=== PATIENT | female | born 1930 | race Caucasian/White ===

== ENCOUNTER → 2016-08-10 | Outpatient (CLI) | payer MEDICARE, OTHER, MEDICAID ==
[~2016-08-10] MED LIST: ALBU8.5H3 INH; ATEN-39 PO; BISA10SU8 RECTALLY; BUPR300T20 PO; CALC-1072 PO; CETI10TA56 PO; CHOL100055 PO; CITA-50 PO; CYAN100085 PO; DEXT1DRO7 BOTH EYES; FLUT16SP12 EA NOSTRIL; FOLI-40 PO; FURO40TA70 PO; GABA-222 PO; GUAI100G PO; HYDR-4246 PO; LISI40TA4 PO; MAG355OR18 PO; MAGN400O4 PO; MENT71OI TOP; METH57CR TOP; MYLANTA PO; NYST8800 TOP; POLY12PO2 PO; PRIM50TA27 PO; SENN-9 PO; WARF5TAB6 PO; [UNRECOGNIZED DRUG - CODE]
== END ==
LOC: LABN.A1212 22:14
PROVIDERS: ATTEND Family Medicine
DX: Z53.8 Procedure and treatment not carried out for other reasons (principal)

== ENCOUNTER → 2016-08-11 | Outpatient (CLI) | payer MEDICARE, OTHER, MEDICAID ==
[2016-08-11 07:39] LABS: INR 1.45 (0.76-1.04); PROTHROMBIN TIME 15.8 SEC (9.31-12.49)
== END ==
LOC: LABNH.A212 00:17
PROVIDERS: ATTEND Family Medicine
DX: Z79.01 Long term (current) use of anticoagulants (principal)
CPT/HCPCS: 36415; 85610; P9604

== ENCOUNTER → 2016-09-08 | Outpatient (CLI) | payer MEDICARE, OTHER, MEDICAID ==
[2016-09-08 09:33] LABS: INR 1.53 (0.76-1.04); PROTHROMBIN TIME 16.7 SEC (9.31-12.49)
== END ==
LOC: LABNH.A212 01:02
PROVIDERS: ATTEND Family Medicine
DX: Z79.01 Long term (current) use of anticoagulants (principal)
CPT/HCPCS: 36415; 85610; P9604

== ENCOUNTER → 2016-09-22 | Outpatient (CLI) | payer MEDICARE, OTHER, MEDICAID ==
[2016-09-22 09:59] LABS: INR 1.5 (0.90-1.23); PROTHROMBIN TIME 17.9 SEC (10.8-13.8)
[2016-09-22 10:11] LABS: ANION GAP 10 MEQ/L (5-15); BUN/CREATININE RATIO 25 RATIO (6-26); CALCIUM 8.8 MG/DL (8.4-10.2); CHLORIDE 94 MEQ/L (98-107); CO2 - CARBON DIOXIDE 25 MEQ/L (22-30); CREATININE 0.6 MG/DL (0.7-1.2); GLOMERULAR FILTRATION RATE 95; GLUCOSE 136 MG/DL (65-110); POTASSIUM 5.4 MEQ/L (3.6-5); SODIUM 129 MEQ/L (134-144)
== END ==
LOC: LABNH.A212 00:50
PROVIDERS: ATTEND Family Medicine
DX: I10 Essential (primary) hypertension (principal); Z79.01 Long term (current) use of anticoagulants
CPT/HCPCS: 36415; 80048; 85610

== ENCOUNTER 2017-03-14 19:00 | Inpatient (IN) ==
[2017-03-14] MEDS ORDERED: ALBUTEROL/IPRATROPIUM 2.5mg-0.5mg/3ml NEB AEROSOL ONE (19:15)
--- NOTE | 2017-03-14 19:22 | Emergency Department Report ---
SOB HPI - General Chief Complaint: Shortness of Breath/Dyspnea Stated Complaint: trouble breathing Time Seen by Provider: 03/14/17 19:08 Source: patient Mode of arrival: ambulatory Limitations: no limitations - History of Present Illness Patient has chronic ongoing abdominal pain, and chronic shortness of breath. However tonight she complained of increasing shortness of breath and was found to be hypoxemic in the 80s. Patient was given one Advair treatment, placed on 2 L nasal cannula, and after Dr. Keys was contacted she was sent in for evaluation in the ER. Patient denies any new abdominal pain, no constipation, no diarrhea, but states that she does feel short of breath. On oxygen at 2 L patient's O2 saturations are normal in the mid 90s. However off oxygenation the patient drops below 87% on room air. [facility] staff report a 10 pound weight gain over the past week to 2 weeks. MD Complaint: shortness of breath - Related Data Home Medications Medication Instructions Recorded Confirmed Furosemide [Lasix] 40 mg PO DAILY #0 10/28/10 03/14/17 Atenolol 50 mg PO BID #0 11/19/10 03/14/17 Gabapentin 600 mg PO QID #0 03/03/11 03/14/17 Cyanocobalamin (Vitamin B-12) 1,000 mcg PO DAILY #0 tab 11/04/13 03/14/17 [B-12] Dextran 70/Hypromellose 1 drp BOTH EYES TID #0 11/04/13 03/14/17 [Artificial Tears] Folic Acid 1 mg PO DAILY #0 tab 11/04/13 03/14/17 Primidone 50 mg PO QID #0 tab 11/04/13 03/14/17 buPROPion HCl [Bupropion Xl] 300 mg PO DAILY #0 tab 11/04/13 03/14/17 Lisinopril 40 mg PO DAILY #0 tab 09/10/15 03/14/17 Sennosides/Docusate Sodium 1 tab PO DAILY #0 tab 09/10/15 03/14/17 [Senokot-S Tablet] Bisacodyl 1 supp RECTALLY DAILY PRN #0 supp 10/20/15 03/14/17 Magnesium Hydroxide [Milk of 30 ml PO Q12H PRN #0 10/20/15 03/14/17 Magnesia] Methyl Salicylate/Menthol [Bengay 1 applic TOP QID PRN #0 10/20/15 03/14/17 Greaseless Cream] Nystatin 1 applic TOP DAILY PRN #0 bottle 10/20/15 03/14/17 Acetaminophen [Acetaminophen ER] 650 mg PO Q4H PRN 03/14/17 03/14/17 Albuterol Sulfate [Proair Hfa] 2 puff INH Q6H PRN 03/14/17 03/14/17 Amlodipine [Norvasc] 10 mg PO DAILY 03/14/17 03/14/17 CarBAMazepine [TEGretol Chewable] 100 mg PO BID 03/14/17 03/14/17 Cholecalciferol (Vitamin D3) 1,000 unit PO DAILY 03/14/17 03/14/17 [Vitamin D3] Citalopram [Celexa] 10 mg PO DAILY 03/14/17 03/14/17 Fluticasone/Salmeterol 250/50 1 puff INH BID 03/14/17 03/14/17 [Advair 250-50 Diskus] Hydralazine [Apresoline] 25 mg PO BID 03/14/17 03/14/17 Hydrocodone/APAP 7.5/325 [[place] 1 tab PO Q6H PRN 03/14/17 03/14/17 7.5/325] Hydrocodone/APAP 7.5/325 [[place] 1 tab PO TID 03/14/17 03/14/17 7.5/325] Mag Hydrox/Aluminum Hyd/Simeth 30 ml PO Q4H PRN 03/14/17 03/14/17 [Alum-Mag Hydroxide-Simeth Liq] Peg 3350 238 G Bottle [Miralax] 17 gm PO DAILY 03/14/17 03/14/17 Terbinafine HCl [Terbinafine] 1 applic TOP BID 03/14/17 03/14/17 Warfarin Sodium 9 mg PO SUTUTHSA@1700 03/14/17 03/14/17 Warfarin Sodium 10 mg PO MOWEFR@1700 03/14/17 03/14/17 guaiFENesin [Guaifenesin] 100 mg PO Q4H PRN 03/14/17 03/14/17 Allergies Allergy/AdvReac Type Severity Reaction Status Date / Time adhesive tape Allergy Unknown Verified 03/14/17 19:04 Penicillins Allergy Unknown Verified 03/14/17 19:04 pneumococcal vaccine Allergy Unknown Verified 03/14/17 19:04 Tetanus Vaccines and Toxoid Allergy Unknown Verified 03/14/17 19:04 tramadol Allergy Unknown Verified 03/14/17 19:04 Review of Systems All systems: reviewed and negative except as stated PFSH Patient Stated Medical History Cataracts Yes Other HEENT Yes: Chronic sinusitis Hypertension Yes Other Cardiology Yes: Coronary arteriosclerosis Chronic Obstructive Pulmonary Yes Disease (COPD) Other Respiratory Yes: SOB Other GI Yes: Constipation Other Hematologic Yes: Hx of DVT's Osteoarthritis Yes Other Musculoskeletal Yes: Muscle spasms Depression Yes Hypertension Coronary disease Chronic peripheral edema COPD, non-oxygen dependent normally Low back pain/osteoarthritis GERD Migraines, tension headaches, Anxiety, depression, mood disorder Chronic sinusitis Polyneuropathy Neurovascular disease DVT Surgical History: Knee and hip surgery Physical Exam - Limitations Limitations: no limitations - General General appearance: alert - Normal Exams: Head:: Normocephalic without trauma Eyes:: Pupils are PERRLA w/ EOMI, No scleral icterus, irritation, or foreign bodies noted ENMT:: No facial trauma, nasal exudates, pharyngeal erythema, or exudates are noted Neck:: Full range of motion, without adenopathy, JVD, bruits or thyromegaly Lymphatic:: No lymphadenopathy, or lymphedema noted Musculoskeletal:: No tenderness, or deformity noted, good range of motion, all extremities Integumentary:: No rashes, hives, or bruising noted, hair and nails, without abnormality Neurological:: Patient is alert, and oriented, cranial nerves, motor/sensory/ cerebellar, exams w/o gross deficits, to observation Psychiatric:: Patient exhibits, appropriate attention, emotion and affect - Chest Chest inspection: Present: normal inspection, symmetric chest wall rise. Absent : tenderness - Respiratory Respiratory exam: Present: wheezes, prolonged expiratory phase (mild prolonged expiratory phase). Absent: normal lung sounds bilaterally (course breath sounds bilaterally with minimal wheezes in the apices only), respiratory distress, accessory muscle use - Cardiovascular Cardiovascular exam: Present: regular rate, normal rhythm, normal heart sounds. Absent: bradycardia - Abdominal Exam Abdominal exam: Present: soft, tenderness (moderate diffuse low abdominal tenderness, no guarding no rebounding.), diminished bowel sounds. Absent: distention Course Vital Signs Temperature 96.4 F L 03/14/17 19:03 Pulse Rate 88 03/14/17 19:03 Respiratory Rate 22 03/14/17 19:03 Blood Pressure 224/109 H 03/14/17 19:03 Pulse Oximetry 92 03/14/17 19:03 Temperature 96.4 F L 03/14/17 19:03 Pulse Rate 81 03/14/17 20:45 Respiratory Rate 20 03/14/17 20:45 Blood Pressure 190/86 H 03/14/17 20:45 Pulse Oximetry 95 03/14/17 20:45 Shortness of Breath/Dyspnea - MDM Narrative Medical decision making narrative: Patient given one DuoNeb treatment nebulized - no change EKG - sinus rhythm without ischemia, ectopy, or infarction Troponin - normal CXR - moderate diffuse infiltrative pattern with cardiomegaly consistent with pulmonary edema BNP - mildly elevated at 800 CBC -normal CMP -normal Patient appears to be fluid overloaded with pulmonary edema. Given 40 mg Lasix IV, Gabo Jamil will admit the patient inpatient to telemetry for fluid overload with pulmonary edema. - Lab Data Result diagrams: 03/14/17 19:52 03/14/17 19:52 Lab Results 03/14/17 03/14/17 03/14/17 Range/Units 19:52 19:52 19:52 WBC 11.7 H (4.5-11.0) T/MM3 RBC 3.70 L (4.00-5.20) M/MM3 Hgb 12.2 (12-16) GM/DL Hct 37.1 (36-46) % MCV 100.3 H (80-100) UM3 MCH 33.0 (26-34) UUG MCHC 32.9 (31-37) GM/DL RDW Std Deviation 44.4 (36.9-50.2) FL Plt Count 274 (130-400) T/MM3 MPV 9.2 L (9.4-12.4) UM3 Immature Gran % (Auto) 0.3 (0.0-0.5) % Neut % (Auto) 81.1 H (33-66) % Lymph % (Auto) 8.9 L (23-45) % Nye % (Auto) 7.7 (0-9.0) % Eos % (Auto) 1.8 (0-4) % Baso % (Auto) 0.2 (0-2) % Neut # (Auto) 9.5 H (1.8-7.7) T/MM3 Lymph # (Auto) 1.0 (1-4.8) T/MM3 Nye # (Auto) 0.9 H (0-0.8) T/MM3 Eos # (Auto) 0.2 (0-0.5) T/MM3 Baso # (Auto) 0.0 (0-0.2) T/MM3 Abs Immat Gran (auto) 0.03 (0.00-0.03) T/MM3 INR 3.85 H (0.99-1.21) Turbidity < 20 (0-20) Sodium 131 L (134-144) MEQ/L Potassium 4.5 (3.6-5) MEQ/L Chloride 94 L (98-107) MEQ/L Carbon Dioxide 29 (22-30) MEQ/L Anion Gap 8 (5-15) MEQ/L BUN 24.0 H (7-17) MG/DL Creatinine 0.7 (0.7-1.2) MG/DL GFR Calculation 80 BUN/Creatinine Ratio 34 H (6-26) RATIO Glucose 132 H (65-110) MG/DL Calculated Osmolality 259 L (261-280) MOSM/KG Calcium 8.6 (8.4-10.2) MG/DL Total Bilirubin 0.30 (0.20-1.30) MG/DL Conjugated Bilirubin 0.00 (0.00-0.30) MG/DL Unconjugated Bilirubin 0.00 (0.00-1.1) MG/DL Icterus Index < 2 (0-7) AST 22 (14-36) U/L ALT 32 (9-52) U/L Alkaline Phosphatase 125 (38-126) U/L Troponin I < 0.012 (0-0.12) ng/ml B-Natriuretic Peptide (0-175) pg/mL Total Protein 7.0 (6.3-8.2) G/DL Albumin 3.7 (3.5-5.0) G/DL Globulin 3.3 (2.4-3.6) G/DL Albumin/Globulin Ratio 1.1 (1.1-2.2) RATIO Specimen Hemolysis 18 (0-25) //17 Range/Units 19:52 WBC (4.5-11.0) T/MM3 RBC (4.00-5.20) M/MM3 Hgb (12-16) GM/DL Hct (36-46) % MCV (80-100) UM3 MCH (26-34) UUG MCHC (31-37) GM/DL RDW Std Deviation (36.9-50.2) FL Plt Count (130-400) T/MM3 MPV (9.4-12.4) UM3 Immature Gran % (Auto) (0.0-0.5) % Neut % (Auto) (33-66) % Lymph % (Auto) (23-45) % Nye % (Auto) (0-9.0) % Eos % (Auto) (0-4) % Baso % (Auto) (0-2) % Neut # (Auto) (1.8-7.7) T/MM3 Lymph # (Auto) (1-4.8) T/MM3 Nye # (Auto) (0-0.8) T/MM3 Eos # (Auto) (0-0.5) T/MM3 Baso # (Auto) (0-0.2) T/MM3 Abs Immat Gran (auto) (0.00-0.03) T/MM3 INR (0.99-1.21) Turbidity (0-20) Sodium (134-144) MEQ/L Potassium (3.6-5) MEQ/L Chloride (98-107) MEQ/L Carbon Dioxide (22-30) MEQ/L Anion Gap (5-15) MEQ/L BUN (7-17) MG/DL Creatinine (0.7-1.2) MG/DL GFR Calculation BUN/Creatinine Ratio (6-26) RATIO Glucose (65-110) MG/DL Calculated Osmolality (261-280) MOSM/KG Calcium (8.4-10.2) MG/DL Total Bilirubin (0.20-1.30) MG/DL Conjugated Bilirubin (0.00-0.30) MG/DL Unconjugated Bilirubin (0.00-1.1) MG/DL Icterus Index (0-7) AST (14-36) U/L ALT (9-52) U/L Alkaline Phosphatase (38-126) U/L Troponin I (0-0.12) ng/ml B-Natriuretic Peptide 812 H (0-175) pg/mL Total Protein (6.3-8.2) G/DL Albumin (3.5-5.0) G/DL Globulin (2.4-3.6) G/DL Albumin/Globulin Ratio (1.1-2.2) RATIO Specimen Hemolysis (0-25) Critical Care Time Critical Care Time: Yes Total Critical Care Time: 35 Attestation: She required advanced intervention and diagnostics as well as therapy for hypoxemia, acute. Disposition Clinical Impression: Hypoxemia Pulmonary edema Qualifiers: Chronicity: acute Qualified Code(s): J81.0 - Acute pulmonary edema Disposition: 02 To [facility] [place] Condition: Stable Prescriptions: No Action Gabapentin 600 mg PO QID #0 Dextran 70/Hypromellose [Artificial Tears] 1 drp BOTH EYES TID #0 Primidone 50 mg PO QID #0 tab Folic Acid 1 mg PO DAILY #0 tab Magnesium Hydroxide [Milk of Magnesia] 30 ml PO Q12H PRN #0 PRN Reason: Constipation Bisacodyl 1 supp RECTALLY DAILY PRN #0 supp PRN Reason: PRN ORDERS Nystatin 1 applic TOP DAILY PRN #0 bottle PRN Reason: ITCHING Methyl Salicylate/Menthol [Bengay Greaseless Cream] 1 applic TOP QID PRN #0 PRN Reason: PAIN Albuterol Sulfate [Proair Hfa] 2 puff INH Q6H PRN PRN Reason: Shortness Of Air/Wheezing Acetaminophen [Acetaminophen ER] 650 mg PO Q4H PRN PRN Reason: Pain Hydrocodone/APAP 7.5/325 [[place] 7.5/325] 1 tab PO TID Terbinafine HCl [Terbinafine] 1 applic TOP BID Peg 3350 238 G Bottle [Miralax] 17 gm PO DAILY Amlodipine [Norvasc] 10 mg PO DAILY CarBAMazepine [TEGretol Chewable] 100 mg PO BID Citalopram [Celexa] 10 mg PO DAILY Warfarin Sodium 9 mg PO SUTUTHSA@1700 Warfarin Sodium 10 mg PO MOWEFR@1700 Hydrocodone/APAP 7.5/325 [[place] 7.5/325] 1 tab PO Q6H PRN PRN Reason: Pain Furosemide [Lasix] 40 mg PO DAILY #0 Atenolol 50 mg PO BID #0 buPROPion HCl [Bupropion Xl] 300 mg PO DAILY #0 tab Cyanocobalamin (Vitamin B-12) [B-12] 1,000 mcg PO DAILY #0 tab Lisinopril 40 mg PO DAILY #0 tab Sennosides/Docusate Sodium [Senokot-S Tablet] 1 tab PO DAILY #0 tab guaiFENesin [Guaifenesin] 100 mg PO Q4H PRN PRN Reason: Cough Mag Hydrox/Aluminum Hyd/Simeth [Alum-Mag Hydroxide-Simeth Liq] 30 ml PO Q4H PRN PRN Reason: Indigestion Fluticasone/Salmeterol 250/50 [Advair 250-50 Diskus] 1 puff INH BID Cholecalciferol (Vitamin D3) [Vitamin D3] 1,000 unit PO DAILY Hydralazine [Apresoline] 25 mg PO BID Referrals: Jamey Keys MD [Family Provider] - - Seen By: physician
[2017-03-14] MEDS: SALINE FLUSH 10ml SYRINGE IVF PRN (20:01)
[2017-03-14] MEDS ORDERED: FUROSEMIDE 40 MG/4 ML INJECTION IVP ONE (21:50)
[2017-03-14 23:37] VITALS: BMI 48.3
--- NOTE | 2017-03-15 00:25 | History & Physical Report ---
<Gabo Jamil P - Last Filed: 03/15/17 00:22> History of Present Illness Date: 03/15/17 Chief complaint: couldn't breath HPI: Please note that the patient was admitted with nursing assistance by telemedicine on 03/14-03/15/2017 Ms. Fitzpatrick is an 86yo woman with history of essential HTN, COPD, DVTs, class 3 obesity with prior gastric bypass with subsequent reversal due to "lost too much weight and did not feel well." She presents with shortness of breath at the skilled nursing. She recognizes nonproductive cough but no CP or palpitations (note she denies CAD hx). No other fevers, chills, nausea, vomiting. Weight up 10 pounds by [facility] records and patient denies any fluid restriction, and she does drink as she pleases. [facility] Patient Stated Medical History Peripheral Neuropathy Yes: legs Cataracts Yes Hypertension Yes Chronic Obstructive Pulmonary Yes Disease (COPD) Other Respiratory Yes: SOB Other GI Yes: Constipation Hx Incontinence Yes Other Hematologic Yes: Hx of DVT's Osteoarthritis Yes Other Musculoskeletal Yes: Muscle spasms Depression Yes Clinic Medical History Pulmonary edema (Acute Medical) Hypoxemia (Acute Medical) Surgical History: Knee and hip surgery. choly. appy - Social History Smoking status: Never smoker Substance use type: does not use Alcohol intake frequency: does not drink Housing: skilled nursing Medications Home Medications Medication Instructions Recorded Confirmed Type Furosemide [Lasix] 40 mg PO DAILY #0 10/28/10 03/14/17 History Atenolol 50 mg PO BID #0 11/19/10 03/14/17 History Gabapentin 600 mg PO QID #0 03/03/11 03/14/17 History Cyanocobalamin (Vitamin B-12) 1,000 mcg PO DAILY #0 tab 11/04/13 03/14/17 History [B-12] Dextran 70/Hypromellose 1 drp BOTH EYES TID #0 11/04/13 03/14/17 History [Artificial Tears] Folic Acid 1 mg PO DAILY #0 tab 11/04/13 03/14/17 History Primidone 50 mg PO QID #0 tab 11/04/13 03/14/17 History buPROPion HCl [Bupropion Xl] 300 mg PO DAILY #0 tab 11/04/13 03/14/17 History Lisinopril 40 mg PO DAILY #0 tab 09/10/15 03/14/17 History Sennosides/Docusate Sodium 1 tab PO DAILY #0 tab 09/10/15 03/14/17 History [Senokot-S Tablet] Bisacodyl 1 supp RECTALLY DAILY PRN #0 supp 10/20/15 03/14/17 History Magnesium Hydroxide [Milk of 30 ml PO Q12H PRN #0 10/20/15 03/14/17 History Magnesia] Methyl Salicylate/Menthol [Bengay 1 applic TOP QID PRN #0 10/20/15 03/14/17 History Greaseless Cream] Nystatin 1 applic TOP DAILY PRN #0 bottle 10/20/15 03/14/17 History Acetaminophen [Acetaminophen ER] 650 mg PO Q4H PRN 03/14/17 03/14/17 History Albuterol Sulfate [Proair Hfa] 2 puff INH Q6H PRN 03/14/17 03/14/17 History Amlodipine [Norvasc] 10 mg PO DAILY 03/14/17 03/14/17 History CarBAMazepine [TEGretol Chewable] 100 mg PO BID 03/14/17 03/14/17 History Cholecalciferol (Vitamin D3) 1,000 unit PO DAILY 03/14/17 03/14/17 History [Vitamin D3] Citalopram [Celexa] 10 mg PO DAILY 03/14/17 03/14/17 History Fluticasone/Salmeterol 250/50 1 puff INH BID 03/14/17 03/14/17 History [Advair 250-50 Diskus] Hydralazine [Apresoline] 25 mg PO BID 03/14/17 03/14/17 History Hydrocodone/APAP 7.5/325 [[place] 1 tab PO Q6H PRN 03/14/17 03/14/17 History 7.5/325] Hydrocodone/APAP 7.5/325 [[place]on 1 tab PO TID 03/14/17 03/14/17 History 7.5/325] Mag Hydrox/Aluminum Hyd/Simeth 30 ml PO Q4H PRN 03/14/17 03/14/17 History [Alum-Mag Hydroxide-Simeth Liq] Peg 3350 238 G Bottle [Miralax] 17 gm PO DAILY 03/14/17 03/14/17 History Terbinafine HCl [Terbinafine] 1 applic TOP BID 03/14/17 03/14/17 History Warfarin Sodium 9 mg PO SUTUTHSA@1700 03/14/17 03/14/17 History Warfarin Sodium 10 mg PO MOWEFR@1700 03/14/17 03/14/17 History guaiFENesin [Guaifenesin] 100 mg PO Q4H PRN 03/14/17 03/14/17 History Allergies Allergy/AdvReac Type Severity Reaction Status Date / Time adhesive tape Allergy Unknown Verified 03/14/17 19:04 Penicillins Allergy Unknown Verified 03/14/17 19:04 pneumococcal vaccine Allergy Unknown Verified 03/14/17 19:04 Tetanus Vaccines and Toxoid Allergy Unknown Verified 03/14/17 19:04 tramadol Allergy Unknown Verified 03/14/17 19:04 Exam Vital Signs: Temperature 96.8 F 03/14/17 23:35 Pulse Rate 80 03/14/17 23:35 Respiratory Rate 26 H 03/14/17 23:35 Blood Pressure 166/96 H 03/14/17 23:53 Pulse Oximetry 95 03/14/17 23:53 Telemetry Rhythm: Sinus Rhythm Height/Weight/BMI: Height 1.6 m Weight 123.7 kg Body Mass Index 48.3 - Constitutional Present: mild distress - Routine HEENT Exam Head: Present: normocephalic Eye: Present: EOMI - Routine Respiratory Exam Present: rales, wheezes - Routine Cardiovascular Exam Present: RRR, S1, S2, no murmur Comments: acc S2, 1+ LE edema, cannot assess JVP - Routine Abdominal Exam Present: soft, normoactive bowel sounds - Routine Neurological Exam Present: alert, oriented X3, CN II-XII intact - Routine Psychiatric Exam Present: normal affect Results - Labs CBC & Chem 7: 03/14/17 19:52 03/14/17 19:52 Assessment and Plan (1) Acute diastolic heart failure Current visit: Yes Status: Acute (2) HTN (hypertension) Current visit: Yes Status: Acute (3) COPD (chronic obstructive pulmonary disease) Current visit: Yes Status: Acute (4) Hyperglycemia Current visit: Yes Status: Acute (5) Leukocytosis Current visit: Yes Status: Acute (6) Hypoxemia Current visit: Yes Status: Acute (7) Hx of deep venous thrombosis Current visit: Yes Status: Chronic Assessment and Plan: 1. Acute CHF, presumed diastolic--full admission for lasix IV BID, KCl supp as needed, monitor renal function with wagner. Echo and consider cardiology consult. 2. Essential HTN on lisinopril, amlodipine, hydralazine, and atenolol. HTN on ED eval with lasix IV with brisk diuresis and improved BP. 3. Hypoxia present on admit due to CHF. O2 2L with SpO2 from 84% to 93%. Diurese and reassess with 4. 4. COPD on advair and albuterol. 5. Likely pulm HTN, f/u echo and ? MIKAL 6. Hyperglycemia--check A1C with her denying DM2. Check TSH as well. 7. Leukocytosis with no fever. UA and recheck. 8. hx of DVTs on warfarin bu INR 3.6 Hold with AM recheck. 9. Class 3 obesity BMI 48 DNR SCS DVT Prophylaxis: SCD's Resuscitation Status: Do Not Resuscitate Hospital Course Summary Disclaimer: The visit summary below is not to be considered part of the above Progress Note. <Ayleen Sheffield - Last Filed: 03/15/17 15:29> History of Present Illness Date: 03/15/17 Exam Vital Signs: Temperature 96.2 F L 03/15/17 08:00 Pulse Rate 68 03/15/17 09:01 Respiratory Rate 18 03/15/17 09:01 Blood Pressure 144/67 H 03/15/17 08:00 Pulse Oximetry 96 03/15/17 09:01 Height/Weight/BMI: Height 1.6 m Weight 123.5 kg Body Mass Index 48.3 Results - Labs CBC & Chem 7: 03/15/17 04:27 03/15/17 04:27 Assessment and Plan (1) Hypoxemia Current visit: Yes Status: Acute (2) Acute diastolic heart failure Current visit: Yes Status: Acute (3) HTN (hypertension) Problem details: Acute on chronic Current visit: Yes Status: Acute (4) COPD (chronic obstructive pulmonary disease) Current visit: Yes Status: Acute Assessment and Plan: Dr. Jamil's note reviewed. Mrs. Fitzpatrick was interviewed and examined. The patient's son and daughter provided supplemental history CC: Shortness of breath HPI: Mrs. Fitzpatrick is an 86-year-old female with remote history of DVT (1972), hypertension, COPD, and obesity. She presented to the emergency room overnight with increasing dyspnea for 1 week and bad cough which is typically nonproductive. Yesterday she reports that she had some sputum production. Her son indicates the patient has been winded transferring from wheelchair to bed or wheelchair to chair. Patient is nonambulatory at baseline. The patient denies fevers or chills and has had no nausea or vomiting. Her weight has increased progressively and she feels that she's been retaining fluid with increased edema in her lower extremities. She denies chest pain but indicates some discomfort when she takes a deep breath or coughs. Patient reports that she does not use salt but that she does not follow a fluid restriction. Chest x- ray in the emergency room was consistent with heart failure and early pulmonary edema. Additionally the patient was hypertensive in the ER with initial blood pressure of 224/109 which began improving with initiation of diuresis. PH/SH/FH: agree with that recorded above with additional history of degenerative disc disease, diabetes mellitus (patient denies, daughter insists patient has), remote history of peptic ulcer disease, hyperparathyroidism monitored by Dr. Rivera, vitamin D deficiency, coronary artery disease with past OR and stent placement, and trigeminal neuralgia. Surgical history includes bilateral TKAs, bilateral THAs, total abdominal hysterectomy, appendectomy, gastric bypass with reversal, and bilateral cataract extraction. Social history as previously described, patient is a resident at a greenhouse at [place]. The patient confirmed DO NOT RESUSCITATE status and reports that her daughter Liliya Ovalle is her DPOA. Family history-both parents had diabetes, COPD, and coronary artery disease; one of the patient's daughter and her mother had breast cancer; one son had colon cancer. ROS: 10 point review completed with patient describing a bad memory, frontal headaches, occasional visual blurring, chronic heartburn which has worsened recently, chronic urinary incontinence, chronic pain in her legs attributed to neuropathy, chronic nonambulatory status requiring use of the wheelchair, and no past use of oxygen. Remainder of review of systems was negative or as per history of present illness. EXAM: General-elderly female, NAD, fluent speech. 144/6796.2, 68, 96%-1 L HEENT-PERRL, EOMI without nystagmus, conjunctiva clear, sclera anicteric, conjugate gaze, facial structures symmetric, oropharynx clear, neck supple and without adenopathy Lungs-respirations nonlabored, faint wheezing at the left base posteriorly, decreased breath sounds at both bases bilaterally Cardiac-regular rhythm, S1-S2, no gallop or murmur appreciated Abd-obese, soft, mild tenderness in the right lower quadrant without guarding, bowel sounds present Ext-+1 edema RLE, trace edema LLE; degenerative changes and small joints of the hands Skin-without generalized rash or wounds Neuro-cranial nerves III through XII intact, sensation intact 4 extremities with hypersensitivity present on palpation of lower extremities below the knees , dorsiflexion, plantarflexion, and printing mechanist all symmetric and graded 4/5 Psych-calm, cooperative, pleasant DATA: Hemoglobin 11.8, white count 9.8; INR 3.85-4.01; sodium 131-133, bicarbonate 31, creatinine 0.6, A1c 6.3, magnesium 1.5, liver enzymes unremarkable. BNP 812, TSH 2.38 Urinalysis unremarkable Chest x-ray reviewed by myself demonstrating cardiomegaly and increased vascular markings consistent with CHF A/P: Acute CHF, likely diastolic Hypertensive urgency/chronic hypertension Hypoxia COPD Hyperglycemia/metabolic syndrome-A1c 6.3 History DVT Chronic warfarin therapy Morbid obesity-BMI 48.2 Peripheral neuropathy DDD/DJD Hypomagnesemia, POA Hyponatremia, POA-131 Mrs. Fitzpatrick presented with cough and symptomatic dyspnea which has progressed over the past week. There's been minimal sputum production and no other symptoms to suggest infectious etiology. BNP is elevated and chest x-ray compatible with congestive heart failure. Blood pressure was significantly elevated on admission and is improving with diuresis but suggests underlying diastolic dysfunction triggered by hypertensive urgency. EKG was without acute changes by my review and troponin unremarkable on presentation. The patient is diuresing well and cough has improved with diuresis to date. Continue same. Echocardiogram pending. Patient required 2-4 L oxygen overnight but is currently stable on 1 L. Continue to titrate oxygen as saturation permits. Although cough has been typically nonproductive the patient reports increased sputum production yesterday; sputum culture will be obtained if possible to exclude respiratory pathogen and respiratory viral panel will be screened. Albuterol when necessary. Will likely benefit from overnight oximetry prior to discharge-body habitus suggest high risk of sleep apnea or obesity hypoventilation syndrome. Hyponatremia likely due to volume overload; hypomagnesemia present on admission- magnesium will be acutely with chronic replacement continued as she is on chronic diuretic therapy. Warfarin on hold at present due to elevated INR. Supplemental history provided by the patient's son and daughter; outpatient records reviewed. Patient will return to the care of Dr. Keys at discharge. Hospital Course Summary Disclaimer: The visit summary below is not to be considered part of the above Progress Note.
[2017-03-15] MEDS ORDERED: FUROSEMIDE 40 MG/4 ML INJECTION IVP ONE ×2 (07:30)
--- NOTE | 2017-03-15 08:07 | XRay Report ---
Indication: dyspnea PROCEDURE: XR chest 1V: Encounter: Initial Comparison: None Findings: Increased pulmonary vascular prominence with hazy groundglass opacities in the mid to lower lung awad. No lobar consolidation. No pleural effusion or pneumothorax. Cardiac silhouette is moderately enlarged. Mediastinal contours are within normal limits. Surgical clips in the left upper abdomen. Impression: Findings of mild to moderate pulmonary edema. .
[2017-03-15] MEDS: CITALOPRAM 10 MG TABLET PO SCH (08:48)
[2017-03-15] MEDS: PRIMIDONE 50 MG TABLET PO SCH ×4 (08:48→20:48)
[2017-03-15] MEDS: AMLODIPINE 10 MG TABLET PO SCH (08:48)
[2017-03-15] MEDS: HYDRALAZINE 25 MG TABLET PO SCH ×2 (08:48→17:41)
[2017-03-15] MEDS: BuPROPion XL 300mg (24HR) TABLET PO SCH (08:48)
[2017-03-15] MEDS: GABAPENTIN 600 MG TABLET PO SCH ×4 (08:48→20:48)
[2017-03-15] MEDS: ATENOLOL 50 MG TABLET PO SCH ×2 (08:48→20:49)
[2017-03-15] MEDS: LISINOPRIL 40 MG TABLET PO SCH (08:48)
[2017-03-15] MEDS ORDERED: WARFARIN - PHARMACY CONSULT MC ONE ×2 (12:20→13:00)
--- NOTE | 2017-03-15 13:10 | Pharmacy Consult ---
Pharmacy Consult-Warfarin - Laboratory Information 03/15/17 04:27 INR 4.01 H - Consult Information COUMADIN CONSULT (Initial): Dx: History of DVT Baseline INR = 4.01. Will give no Warfarin today. Thank you.
--- NOTE | 2017-03-15 13:24 | Echocardiogram ---
DATE OF PROCEDURE March 15, 2017 REFERRING PHYSICIAN Dipesh Orlando MD This is a two-dimensional echo with spectral Doppler, color-flow and M-mode. It was obtained in a patient with congestive heart failure. This is a technically difficult study. Left atrium is normal. Left ventricle end-diastolic dimension is normal. Left ventricle wall thickness is normal. LV systolic function is grossly normal with ejection fraction of about 50-55%. Right atrium is normal. Right ventricle is normal. Aortic root dimension is normal. Mitral valve annulus is calcified. Mitral valve leaflets are normal with trace of mitral regurgitation. Aortic valve shows fibrocalcific changes with no stenosis or insufficiency. Tricuspid valve shows trace of tricuspid regurgitation with mild pulmonary hypertension with estimated pulmonary artery systolic pressure of 43. Pulmonary valve shows no pulmonary insufficiency. There is no pericardial effusion. IMPRESSION 1. Normal LV systolic function with ejection fraction of about 50-55%. 2. Mitral annulus calcification with trace of mitral regurgitation. 3. Aortic sclerosis. 4. Trace of tricuspid regurgitation with mild pulmonary hypertension with estimated pulmonary artery systolic pressure of 43. 5. Technically difficult study. MTDD
[2017-03-15] MEDS ORDERED: FUROSEMIDE 20 MG/2 ML INJECTION IVP ONE (16:00)
[2017-03-15] MEDS: FUROSEMIDE 40 MG/4 ML INJECTION IVP SCH (17:41)
[2017-03-15] MEDS: MAGNESIUM OXIDE 400 MG TABLET PO SCH (20:49)
[2017-03-15] MEDS ORDERED: FALL RISK - PHARMACY CONSULT MC ONE (23:21)
[2017-03-16] MEDS: FUROSEMIDE 40 MG/4 ML INJECTION IVP SCH ×3 (01:04→17:13)
--- NOTE | 2017-03-16 07:43 | Pharmacy Consult ---
Pharmacy Consult-Warfarin - Laboratory Information 03/15/17 03/16/17 04:27 04:02 INR 4.01 H 3.23 H - Consult Information JOYCE is a 86 yo female admitted for Acute CHF. She has a history of DVT. Date INR Dose given 03/15 4.01 No Dose given 03/16 3,23 No Dose given The INR was supratherapeutic so no warfrin given today. The pharmacy will continue to follow the INR's and adjust as needed. Thanks for the Warfarin Protocol, Oscar Ratliff, Pharmacist.
[2017-03-16] MEDS: GABAPENTIN 600 MG TABLET PO SCH ×4 (08:11→20:13)
[2017-03-16] MEDS: PRIMIDONE 50 MG TABLET PO SCH ×4 (08:11→20:12)
[2017-03-16] MEDS: CITALOPRAM 10 MG TABLET PO SCH (08:11)
[2017-03-16] MEDS: MAGNESIUM OXIDE 400 MG TABLET PO SCH ×2 (08:11→20:13)
[2017-03-16] MEDS: LISINOPRIL 40 MG TABLET PO SCH (08:12)
[2017-03-16] MEDS: BuPROPion XL 300mg (24HR) TABLET PO SCH (08:12)
[2017-03-16] MEDS: ATENOLOL 50 MG TABLET PO SCH ×2 (08:12→20:12)
[2017-03-16] MEDS: HYDRALAZINE 25 MG TABLET PO SCH ×2 (08:13→17:13)
[2017-03-16] MEDS: AMLODIPINE 10 MG TABLET PO SCH (08:13)
[2017-03-16] MEDS ORDERED: acetaZOLAMIDE 250 MG TABLET PO ONE ×2 (08:39→15:00)
[2017-03-16] MEDS ORDERED: MAGNESIUM OXIDE 400 MG TABLET PO ONE (12:00)
[2017-03-16] MEDS: ALBUTEROL 2.5mg/3ml (0.083%) NEB AEROSOL PRN (13:39)
--- NOTE | 2017-03-16 13:57 | Progress Note ---
- Date 03/16/17 Subjective: F/U: Acute respiratory insufficiency/hypoxia, Acute on chronic diastolic heart failure, pulmonary edema Still feels very SOA and congested. Frequent cough, but not able to bring up any sputum. Chest wall sore from coughing. Notes sinus congestion. Reports difficulty swallowing-coughs and chokes. No nausea or reflux. Stools moving frequently. Tolerating wagner Objective Vital signs: Temperature 96.6 F L 03/16/17 07:47 Pulse Rate 68 03/16/17 08:00 Respiratory Rate 24 03/16/17 13:30 Blood Pressure 132/59 03/16/17 07:47 Pulse Oximetry 94 03/16/17 13:30 Height/Weight/BMI: Height 1.6 m Weight 123.4 kg Body Mass Index 48.3 - Constitutional Present: well nourished, well developed, morbidly obese, cooperative - Routine HEENT Exam Head: Present: normocephalic, atraumatic Eye: Present: EOMI, PERRL ENT: Present: mucous membranes moist - Routine Respiratory Exam Present: decreased breath sounds, prolonged expiratory phase, respiratory distress (Mild, frequent cough), wheezes (Diffuse bilateal ), distant breath sounds, diminished air movement - Routine Cardiovascular Exam Present: RRR, no murmur - Routine Abdominal Exam Present: soft, non distended, non tender. Absent: normoactive bowel sounds - Routine Exam Comments: Wagner present - Routine Extremities Exam Present: edema (trace bilateral LE). Absent: cyanosis, clubbing Comments: SCD in place - Routine Musculoskeletal Exam Musculoskeletal: Present: no clubbing or cyanosis - Routine Skin Exam Present: dry, warm - Routine Neurological Exam Present: alert, oriented X3, CN II-XII intact, vision grossly intact, hearing grossly intact, normal speech. Absent: altered mental status - Routine Psychiatric Exam Present: normal affect, normal thought process, cooperative. Absent: anxious, agitated Results - Labs CBC & Chem 7: 03/15/17 04:27 03/16/17 04:02 Assessment and Plan (1) Acute diastolic heart failure Current visit: Yes Status: Acute (2) Hypoxemia Current visit: Yes Status: Acute (3) HTN (hypertension) Problem details: Acute on chronic Current visit: Yes Status: Acute (4) COPD (chronic obstructive pulmonary disease) Current visit: Yes Status: Acute Assessment and Plan: Assessment Acute on chronic diastolic heart failure Pulmonary edema (POA) Acuter hypoxic respiratory insufficiency Hypertensive urgency (POA) - resolved Chronic hypertension COPD Hyperglycemia/metabolic syndrome-A1c 6.3 History DVT Chronic warfarin therapy Peripheral neuropathy DDD/DJD Leukocytosis (POA) - improved Hypomagnesemia (POA) Hyponatremia (POA) - Sodium 131 at admit Morbid obesity-BMI 48.2 Plan Continue with Lasix 40mg IV q 8 hours to help motivate fluid - urine output exceeding intake. Creatinine stable at 0.9 and potassium 4.5 with magnesium 1.6 today. CO2 showing increase to 35 this am. Will give Diamox 500mg x2 6 hours apart today. Additional oral Magnesium 400mg today at noon as Mg low normal at 1.6 and patient on diuretic therapy. Initiate bladder retraining. Continue to wean O2 as able - currently using between 0.5-1L to maintain saturations. Will add routine DuoNeb QID due to COPD and wheezing. Acapella QID to help loosen secretions. IS to help maximize lung volume. Nasal saline QID due to nasal congestion. Add Mucinex DM BID to help decrease cough and secretions. Speech to check swallow due to coughing with oral intake. PT/OT to eval and treat - gen debility and functional decline. INR 3.23 this am - pharm managing. Continue daily INR. Will recheck BMP & Mg in am due to hyponatremia and diuretic use. Recheck CBC in an due to Coumadin use. Recheck CXR tomorrow for follow up of pulmonary edema. Case discussed with CM. Time spent with patient care 35 minutes. DVT Prophylaxis: SCD's, Coumadin Resuscitation Status: Do Not Resuscitate - Time spent with patient Time with patient PN: 35 minutes Hospital Course Summary Disclaimer: The visit summary below is not to be considered part of the above Progress Note. Hospital Course: 03/14/17 Inpatient admission Acute CHF, presumed diastolic--full admission for lasix IV BID, KCl supp as needed, monitor renal function with wagner. Echo and consider cardiology consult. Essential HTN on lisinopril, amlodipine, hydralazine, and atenolol. HTN on ED eval with Lasix IV with brisk diuresis and improved BP. Hypoxia present on admit due to CHF. O2 2L with SpO2 from 84% to 93%. Diurese and reassess. COPD on Advair and albuterol. Likely Pulmonary HTN, f/u echo and ? MIKAL Hyperglycemia--check A1C with her denying DM2. Check TSH as well. Leukocytosis with no fever. UA and recheck. Hx of DVTs on warfarin bu INR 3.6 Hold with AM recheck. Morbid obesity BMI 48 03/15/17 Mrs. Fitzpatrick presented with cough and symptomatic dyspnea which has progressed over the past week. There's been minimal sputum production and no other symptoms to suggest infectious etiology. BNP is elevated and chest x-ray compatible with congestive heart failure. Blood pressure was significantly elevated on admission and is improving with diuresis but suggests underlying diastolic dysfunction triggered by hypertensive urgency. EKG was without acute changes by my review and troponin unremarkable on presentation. The patient is diuresing well and cough has improved with diuresis to date. Continue same. Echocardiogram pending. Patient required 2-4 L oxygen overnight but is currently stable on 1 L. Continue to titrate oxygen as saturation permits. Although cough has been typically nonproductive the patient reports increased sputum production yesterday; sputum culture will be obtained if possible to exclude respiratory pathogen and respiratory viral panel will be screened. Albuterol when necessary. Will likely benefit from overnight oximetry prior to discharge-body habitus suggest high risk of sleep apnea or obesity hypoventilation syndrome. Hyponatremia likely due to volume overload; hypomagnesemia present on admission- magnesium will be acutely with chronic replacement continued as she is on chronic diuretic therapy. Warfarin on hold at present due to elevated INR. Supplemental history provided by the patient's son and daughter; outpatient records reviewed. Patient will return to the care of Dr. Keys at discharge. 03/16/17 Continue with Lasix 40mg IV q 8 hours to help motivate fluid - urine output exceeding intake. Creatinine stable at 0.9 and potassium 4.5 with magnesium 1.6 today. CO2 showing increase to 35 this am. Will give Diamox 500mg x2 6 hours apart today. Additional oral Magnesium 400mg today at noon as Mg low normal at 1.6 and patient on diuretic therapy. Initiate bladder retraining. Continue to wean O2 as able - currently using between 0.5-1L to maintain saturations. Will add routine DuoNeb QID due to COPD and wheezing. Acapella QID to help loosen secretions. IS to help maximize lung volume. Nasal saline QID due to nasal congestion. Add Mucinex DM BID to help decrease cough and secretions. Speech to check swallow due to coughing with oral intake. PT/OT to eval and treat - gen debility and functional decline. INR 3.23 this am - pharm managing. Continue daily INR. Will recheck BMP & Mg in am due to hyponatremia and diuretic use. Recheck CBC in an due to Coumadin use. Recheck CXR tomorrow for follow up of pulmonary edema.
[2017-03-16] MEDS ORDERED: ALBUTEROL/IPRATROPIUM 2.5mg-0.5mg/3ml NEB AEROSOL SCH (15:00)
[2017-03-16] MEDS: SALINE 0.65% NASAL SPRAY 44 ML BOTTLE EA NOSTRIL SCH ×3 (15:28→20:14)
[2017-03-16] MEDS: ALBUTEROL/IPRATROPIUM 2.5mg-0.5mg/3ml NEB AEROSOL SCH ×2 (16:22→20:29)
[2017-03-16] MEDS: GUAIFENESIN/D-METHORPHAN 600mg/30mg TABLET PO SCH (20:12)
[2017-03-16] MEDS: ONDANSETRON 4 MG/2 ML INJECTION IVP PRN (20:24)
[2017-03-17] MEDS: FUROSEMIDE 40 MG/4 ML INJECTION IVP SCH ×2 (01:17→08:46)
[2017-03-17] MEDS: SALINE FLUSH 10ml SYRINGE IVF PRN ×2 (01:18→08:45)
[2017-03-17] MEDS: ALBUTEROL/IPRATROPIUM 2.5mg-0.5mg/3ml NEB AEROSOL SCH ×4 (08:00→21:32)
[2017-03-17] MEDS: HYDRALAZINE 25 MG TABLET PO SCH ×2 (08:47→17:49)
[2017-03-17] MEDS: AMLODIPINE 10 MG TABLET PO SCH (08:48)
[2017-03-17] MEDS: PRIMIDONE 50 MG TABLET PO SCH ×4 (08:48→22:22)
[2017-03-17] MEDS: GABAPENTIN 600 MG TABLET PO SCH ×4 (08:48→22:18)
[2017-03-17] MEDS: GUAIFENESIN/D-METHORPHAN 600mg/30mg TABLET PO SCH ×2 (08:49→22:17)
[2017-03-17] MEDS: ATENOLOL 50 MG TABLET PO SCH ×2 (08:49→22:17)
[2017-03-17] MEDS: BuPROPion XL 300mg (24HR) TABLET PO SCH (08:50)
[2017-03-17] MEDS: CITALOPRAM 10 MG TABLET PO SCH (08:50)
[2017-03-17] MEDS: LISINOPRIL 40 MG TABLET PO SCH (08:50)
[2017-03-17] MEDS: SALINE 0.65% NASAL SPRAY 44 ML BOTTLE EA NOSTRIL SCH ×4 (08:51→22:19)
--- NOTE | 2017-03-17 08:59 | XRay Report ---
INDICATION: F/U Pulmonary edema PROCEDURE: CHEST 2-VIEWS UPRIGHT (PA & LAT) Encounter: Initial COMPARISON: March 14, 2017 FINDINGS: Lungs appear stable. No new consolidation. No pleural effusion or pneumothorax. Heart size and mediastinal contours are unchanged. Pulmonary vascularity remains mildly prominent. Lateral view is limited. Impression: Stable appearance of the chest. .
[2017-03-17] MEDS: MAGNESIUM OXIDE 400 MG TABLET PO SCH ×2 (09:04→22:18)
--- NOTE | 2017-03-17 10:48 | Pharmacy Consult ---
Pharmacy Consult-Warfarin - Laboratory Information 03/15/17 03/16/17 03/17/17 04:27 04:02 04:41 INR 4.01 H 3.23 H 1.55 H - Consult Information We will order warfarin 7.5mg p.o. today at noon. Suggest 1 time dose of enoxaparin if bridging is of concern. Thanks
[2017-03-17] MEDS ORDERED: WARFARIN 7.5 MG TABLET PO SCH (12:00)
[2017-03-17] MEDS ORDERED: BENZONATATE 200 MG CAPSULE PO PRN (12:03)
[2017-03-17] MEDS: FUROSEMIDE 80 MG TABLET PO SCH (14:25)
--- NOTE | 2017-03-17 15:16 | Progress Note ---
<Altagracia Marino V - Last Filed: 03/17/17 15:13> - Date 03/17/17 Subjective: Keely is seen today getting ready for lunch. She reports continued intermittent coughing. Continues on 2 liters of oxygen by n/C. She denies having any pain or GI complains. Wagner cath remains intact. Vital signs normal. Objective Vital signs: Temperature 96.3 F L 03/17/17 13:52 Pulse Rate 68 03/17/17 13:52 Respiratory Rate 16 03/17/17 13:52 Blood Pressure 127/69 03/17/17 13:52 Pulse Oximetry 96 03/17/17 13:52 Height/Weight/BMI: Height 1.6 m Weight 121.4 kg Body Mass Index 48.3 - Constitutional Present: no acute distress, well nourished, well developed - Routine HEENT Exam Eye: Present: EOMI ENT: Present: mucous membranes moist, dentition normal - Routine Respiratory Exam Present: wheezes (mild inspiratory), diminished air movement (bases) - Routine Cardiovascular Exam Present: RRR, S1, S2. Absent: murmur - Routine Abdominal Exam Present: soft, normoactive bowel sounds, non distended. Absent: tenderness - Routine Extremities Exam Present: edema (trace bialteral lower ext) - Routine Skin Exam Present: dry, warm - Routine Neurological Exam Present: alert, oriented X3, CN II-XII intact - Routine Lymphatic Exam Lymphatic: Absent: adenopathy - Routine Psychiatric Exam Present: normal affect Results - Labs CBC & Chem 7: 03/17/17 04:41 03/17/17 04:41 Assessment and Plan (1) Hypoxemia Current visit: Yes Status: Acute (2) Acute diastolic heart failure Current visit: Yes Status: Acute (3) HTN (hypertension) Problem details: Acute on chronic Current visit: Yes Status: Acute (4) COPD (chronic obstructive pulmonary disease) Current visit: Yes Status: Acute Assessment and Plan: Assessment Acute on chronic diastolic heart failure Pulmonary edema (POA) Acuter hypoxic respiratory insufficiency Hypertensive urgency (POA) - resolved Chronic hypertension COPD Hyperglycemia/metabolic syndrome-A1c 6.3 History DVT Chronic warfarin therapy Peripheral neuropathy DDD/DJD Leukocytosis (POA) - improved Hypomagnesemia (POA) Hyponatremia (POA) - Sodium 131 at admit Morbid obesity-BMI 48.2 Plan Lasix changed to 80mg daily Asked nursing staff to remove wagner cath today Continue to work on weaning off oxygen. Planning for overnight oximetry study tonight. Continue with DuoNeb, Acapella and IS Tessalon Perles and Mucinex BID to help decrease cough INR today was slightly down 1.55, 7.5 milligrams warfarin was given orally. Encouraged work with PT/OT given overall debility and weakness. Case discussed with attending Hospital Course Summary Disclaimer: The visit summary below is not to be considered part of the above Progress Note. Hospital Course: 03/14/17 Inpatient admission Acute CHF, presumed diastolic--full admission for lasix IV BID, KCl supp as needed, monitor renal function with wagner. Echo and consider cardiology consult. Essential HTN on lisinopril, amlodipine, hydralazine, and atenolol. HTN on ED eval with Lasix IV with brisk diuresis and improved BP. Hypoxia present on admit due to CHF. O2 2L with SpO2 from 84% to 93%. Diurese and reassess. COPD on Advair and albuterol. Likely Pulmonary HTN, f/u echo and ? MIKAL Hyperglycemia--check A1C with her denying DM2. Check TSH as well. Leukocytosis with no fever. UA and recheck. Hx of DVTs on warfarin bu INR 3.6 Hold with AM recheck. Morbid obesity BMI 48 03/15/17 Mrs. Fitzpatrick presented with cough and symptomatic dyspnea which has progressed over the past week. There's been minimal sputum production and no other symptoms to suggest infectious etiology. BNP is elevated and chest x-ray compatible with congestive heart failure. Blood pressure was significantly elevated on admission and is improving with diuresis but suggests underlying diastolic dysfunction triggered by hypertensive urgency. EKG was without acute changes by my review and troponin unremarkable on presentation. The patient is diuresing well and cough has improved with diuresis to date. Continue same. Echocardiogram pending. Patient required 2-4 L oxygen overnight but is currently stable on 1 L. Continue to titrate oxygen as saturation permits. Although cough has been typically nonproductive the patient reports increased sputum production yesterday; sputum culture will be obtained if possible to exclude respiratory pathogen and respiratory viral panel will be screened. Albuterol when necessary. Will likely benefit from overnight oximetry prior to discharge-body habitus suggest high risk of sleep apnea or obesity hypoventilation syndrome. Hyponatremia likely due to volume overload; hypomagnesemia present on admission- magnesium will be acutely with chronic replacement continued as she is on chronic diuretic therapy. Warfarin on hold at present due to elevated INR. Supplemental history provided by the patient's son and daughter; outpatient records reviewed. Patient will return to the care of Dr. Keys at discharge. 03/16/17 Continue with Lasix 40mg IV q 8 hours to help motivate fluid - urine output exceeding intake. Creatinine stable at 0.9 and potassium 4.5 with magnesium 1.6 today. CO2 showing increase to 35 this am. Will give Diamox 500mg x2 6 hours apart today. Additional oral Magnesium 400mg today at noon as Mg low normal at 1.6 and patient on diuretic therapy. Initiate bladder retraining. Continue to wean O2 as able - currently using between 0.5-1L to maintain saturations. Will add routine DuoNeb QID due to COPD and wheezing. Acapella QID to help loosen secretions. IS to help maximize lung volume. Nasal saline QID due to nasal congestion. Add Mucinex DM BID to help decrease cough and secretions. Speech to check swallow due to coughing with oral intake. PT/OT to eval and treat - gen debility and functional decline. INR 3.23 this am - pharm managing. Continue daily INR. Will recheck BMP & Mg in am due to hyponatremia and diuretic use. Recheck CBC in an due to Coumadin use. Recheck CXR tomorrow for follow up of pulmonary edema. 03/17/17 -Plan Lasix changed to 80mg daily. Josie Monteiro. Will do overnight oximetry. Continue with DuoNeb, Acapella and mucolytics. Coumadin managing warfarin dosing, INR today 1.55 <Ayleen Sheffield - Last Filed: 03/17/17 17:50> - Date 03/17/17 Objective Vital signs: Height/Weight/BMI: Results - Labs CBC & Chem 7: 03/17/17 04:41 03/17/17 04:41 Assessment and Plan (1) Hypoxemia Current visit: Yes Status: Acute (2) Acute diastolic heart failure Current visit: Yes Status: Acute (3) HTN (hypertension) Problem details: Acute on chronic Current visit: Yes Status: Acute (4) COPD (chronic obstructive pulmonary disease) Current visit: Yes Status: Acute Assessment and Plan: I have independently evaluated and examined this patient. I reviewed the chart, the patient's history, and the CHECK WRITER SALESPERSON/PA's documented findings as above. We discussed and formulated the assessment and plan as above with additions as below: Mrs. Fitzpatrick reported that she feels lousy. She continues to complain of some dyspnea and cough indicating cough is paroxysmal and that she can't stop it when it starts. She did not describe any other specific symptoms. She indicated that she's had diarrhea today although nursing reported no stools today. Patient was subsequently seen a couple of hours later while eating lunch with the head of the bed elevated about 45 and was coughing/choking. Head of the bed was elevated maximally allowing patient to cough more effectively. Examination revealed the patient to be drowsy when seen initially and much more alert when seen at noon. Respirations were nonlabored with good airflow and breath sounds were clear. No wheezing present. Cardiac rhythm regular; no lower extremity edema present. Weight is down about 2 kg from admission. Chest x-ray today reviewed by myself demonstrating cardiomegaly, improved vascular markings from admission although mild increased vascular congestion persists. Nursing reports patient desaturates when she falls asleep. Will obtain nocturnal oximetry tonight otherwise anticipate discharge back to [facility] tomorrow. Have advised patient she must be upright for meals. Warfarin resumed today. Patient reports warfarin has been continued since DVT many years ago and that she has only had one DVT. She is not aware of any other indication for anticoagulation. Magnesium dose decreased to 400 mg twice a day as magnesium has normalized. Supplemental history provided by nursing; multiple conversations with case management. DVT Prophylaxis: Coumadin Hospital Course Summary Disclaimer: The visit summary below is not to be considered part of the above Progress Note.
[2017-03-17] MEDS ORDERED: SODIUM CL 7% INHAL. SOLN 4ml NEB AEROSOL ONE (16:53)
[2017-03-17] MEDS: ONDANSETRON 4 MG/2 ML INJECTION IVP PRN (21:19)
[2017-03-17] MEDS: SENNA + DOCUSATE TABLET PO PRN (22:18)
[2017-03-18] MEDS: ONDANSETRON 4 MG/2 ML INJECTION IVP PRN ×2 (03:39→09:53)
[2017-03-18] MEDS: SALINE FLUSH 10ml SYRINGE IVF PRN ×3 (03:40→09:55)
[2017-03-18] MEDS: METOCLOPRAMIDE 10mg/2ml INJECTION IVP PRN ×2 (06:15→20:33)
--- NOTE | 2017-03-18 08:26 | Pharmacy Consult ---
Pharmacy Consult-Warfarin - Laboratory Information 03/15/17 03/16/17 03/17/17 04:27 04:02 04:41 INR 4.01 H 3.23 H 1.55 H 03/18/17 07:20 INR 1.20 - Consult Information INR 1.2 today after yesterday's 7.5 mg dose. Give 10 mg warfarin dose today. INR tomorrow. Thank you for the warfarin consult. Kimberly Lynch, PharmD
[2017-03-18] MEDS: ALBUTEROL/IPRATROPIUM 2.5mg-0.5mg/3ml NEB AEROSOL SCH ×5 (09:00→19:58)
[2017-03-18] MEDS: SALINE 0.65% NASAL SPRAY 44 ML BOTTLE EA NOSTRIL SCH ×4 (09:54→22:48)
[2017-03-18] MEDS ORDERED: WARFARIN 5 MG TABLET PO SCH (12:00)
[2017-03-18] MEDS: ALBUTEROL 2.5mg/3ml (0.083%) NEB AEROSOL PRN (13:15)
[2017-03-18] MEDS: GABAPENTIN 600 MG TABLET PO SCH ×4 (14:10→20:38)
[2017-03-18] MEDS: PRIMIDONE 50 MG TABLET PO SCH ×4 (14:11→20:38)
--- NOTE | 2017-03-18 14:12 | Progress Note ---
<Altagracia Marino V - Last Filed: 03/18/17 14:09> - Date 03/18/17 Subjective: Keely seen and examined today while lying in bed. She states that she is "horrible." As she describes having increased nausea with an episode of emesis earlier this morning. She is noted to have expiratory wheezing bilaterally, which seems worse than yesterday. She denies having pain on examination. She does continue on 2 liters of oxygen by nasal cannula to maintain saturations. Objective Vital signs: Temperature 98.4 F 03/18/17 14:02 Pulse Rate 80 03/18/17 14:02 Respiratory Rate 20 03/18/17 14:02 Blood Pressure 141/70 H 03/18/17 14:02 Pulse Oximetry 100 03/18/17 14:02 Height/Weight/BMI: Height 1.6 m Weight 122.3 kg Body Mass Index 48.3 - Constitutional Present: no acute distress, well nourished, well developed - Routine HEENT Exam Eye: Present: EOMI ENT: Present: mucous membranes moist, dentition normal - Routine Respiratory Exam Present: wheezes (expiratory) - Routine Cardiovascular Exam Present: RRR, S1, S2. Absent: murmur - Routine Abdominal Exam Present: soft, normoactive bowel sounds, non distended. Absent: tenderness - Routine Skin Exam Present: intact, dry, warm - Routine Neurological Exam Present: alert, oriented X3, CN II-XII intact - Routine Lymphatic Exam Lymphatic: Absent: adenopathy - Routine Psychiatric Exam Present: normal affect Results - Labs CBC & Chem 7: 03/18/17 13:06 03/17/17 19:01 Microbiology Results: Microbiology 03/15/17 17:48 Sputum, Expectorated Gram Stain - Final 03/15/17 17:48 Sputum, Expectorated Sputum Culture - Preliminary Culture Initiated - Results Pending Assessment and Plan (1) Hypoxemia Current visit: Yes Status: Acute (2) Acute diastolic heart failure Current visit: Yes Status: Acute (3) HTN (hypertension) Problem details: Acute on chronic Current visit: Yes Status: Acute (4) COPD (chronic obstructive pulmonary disease) Current visit: Yes Status: Acute Assessment and Plan: Impression Acute CHF, likely diastolic Hypertensive urgency/chronic hypertension Hypoxia COPD Hyperglycemia/metabolic syndrome-A1c 6.3 History DVT Chronic warfarin therapy Morbid obesity-BMI 48.2 Peripheral neuropathy DDD/DJD Hypomagnesemia, POA Hyponatremia, POA-131 Dysphasia Plan Will obtain a Chest X-ray for evaluation given increasing wheezing today. Concern for aspiration. Did ask speech therapy to reevaluate patient's swallow today. Asked nursing staff to get patient up out of the chair at least twice a day for meals pale. Will likely need to utilize Awa lift for transfers. Continue with Lasix 80 milligrams daily for ongoing diuresis seen [place] Wagner and Mucinex BID to help decrease cough Continue PT/OT for strengthening Hospital Course Summary Disclaimer: The visit summary below is not to be considered part of the above Progress Note. Hospital Course: 03/14/17 Inpatient admission Acute CHF, presumed diastolic--full admission for lasix IV BID, KCl supp as needed, monitor renal function with wagner. Echo and consider cardiology consult. Essential HTN on lisinopril, amlodipine, hydralazine, and atenolol. HTN on ED eval with Lasix IV with brisk diuresis and improved BP. Hypoxia present on admit due to CHF. O2 2L with SpO2 from 84% to 93%. Diurese and reassess. COPD on Advair and albuterol. Likely Pulmonary HTN, f/u echo and ? MIKAL Hyperglycemia--check A1C with her denying DM2. Check TSH as well. Leukocytosis with no fever. UA and recheck. Hx of DVTs on warfarin bu INR 3.6 Hold with AM recheck. Morbid obesity BMI 48 03/15/17 Mrs. Fitzpatrick presented with cough and symptomatic dyspnea which has progressed over the past week. There's been minimal sputum production and no other symptoms to suggest infectious etiology. BNP is elevated and chest x-ray compatible with congestive heart failure. Blood pressure was significantly elevated on admission and is improving with diuresis but suggests underlying diastolic dysfunction triggered by hypertensive urgency. EKG was without acute changes by my review and troponin unremarkable on presentation. The patient is diuresing well and cough has improved with diuresis to date. Continue same. Echocardiogram pending. Patient required 2-4 L oxygen overnight but is currently stable on 1 L. Continue to titrate oxygen as saturation permits. Although cough has been typically nonproductive the patient reports increased sputum production yesterday; sputum culture will be obtained if possible to exclude respiratory pathogen and respiratory viral panel will be screened. Albuterol when necessary. Will likely benefit from overnight oximetry prior to discharge-body habitus suggest high risk of sleep apnea or obesity hypoventilation syndrome. Hyponatremia likely due to volume overload; hypomagnesemia present on admission- magnesium will be acutely with chronic replacement continued as she is on chronic diuretic therapy. Warfarin on hold at present due to elevated INR. Supplemental history provided by the patient's son and daughter; outpatient records reviewed. Patient will return to the care of Dr. Keys at discharge. 03/16/17 Continue with Lasix 40mg IV q 8 hours to help motivate fluid - urine output exceeding intake. Creatinine stable at 0.9 and potassium 4.5 with magnesium 1.6 today. CO2 showing increase to 35 this am. Will give Diamox 500mg x2 6 hours apart today. Additional oral Magnesium 400mg today at noon as Mg low normal at 1.6 and patient on diuretic therapy. Initiate bladder retraining. Continue to wean O2 as able - currently using between 0.5-1L to maintain saturations. Will add routine DuoNeb QID due to COPD and wheezing. Acapella QID to help loosen secretions. IS to help maximize lung volume. Nasal saline QID due to nasal congestion. Add Mucinex DM BID to help decrease cough and secretions. Speech to check swallow due to coughing with oral intake. PT/OT to eval and treat - gen debility and functional decline. INR 3.23 this am - pharm managing. Continue daily INR. Will recheck BMP & Mg in am due to hyponatremia and diuretic use. Recheck CBC in an due to Coumadin use. Recheck CXR tomorrow for follow up of pulmonary edema. 03/17/17 -Plan Lasix changed to 80mg daily. Josie Monteiro. Will do overnight oximetry. Continue with DuoNeb, Acapella and mucolytics. Coumadin managing warfarin dosing, INR today 1.55 03/18/17 Plan Will obtain a Chest X-ray for evaluation given increasing wheezing today. Concern for aspiration. Did ask speech therapy to reevaluate patient's swallow today. Asked nursing staff to get patient up out of the chair at least twice a day for meals pale. Will likely need to utilize Awa lift for transfers. Continue with Lasix 80 milligrams daily for ongoing diuresis seen [place] Wagner and Mucinex BID to help decrease cough Continue PT/OT for strengthening <Yohannes,Ayleen L - Last Filed: 03/18/17 18:57> - Date 03/18/17 Objective Vital signs: Temperature 97.6 F 03/18/17 15:22 Pulse Rate 73 03/18/17 16:00 Respiratory Rate 16 03/18/17 16:42 Blood Pressure 158/66 H 03/18/17 15:22 Pulse Oximetry 93 03/18/17 16:42 Height/Weight/BMI: Height 1.6 m Weight 122.3 kg Body Mass Index 48.3 Results - Labs CBC & Chem 7: 03/18/17 13:06 03/17/17 19:01 Microbiology Results: Microbiology 03/15/17 17:48 Sputum, Expectorated Gram Stain - Final 03/15/17 17:48 Sputum, Expectorated Sputum Culture - Preliminary Culture Initiated - Results Pending Assessment and Plan (1) Hypoxemia Current visit: Yes Status: Acute (2) Acute diastolic heart failure Current visit: Yes Status: Acute (3) HTN (hypertension) Problem details: Acute on chronic Current visit: Yes Status: Acute (4) COPD (chronic obstructive pulmonary disease) Current visit: Yes Status: Acute Assessment and Plan: I have independently evaluated and examined this patient. I reviewed the chart, the patient's history, and the QUALITY CONTROL ASSOCIATE/PA's documented findings as above. We discussed and formulated the assessment and plan as above with additions as below: Mrs. Fitzpatrick reports that she doesn't feel well today going on to say she " keeps aspirating it up". When asked to clarify what she means she talks about coughing. She initially denied vomiting but later reported she has vomited which was confirmed by nursing. Respiratory therapy reported some emesis earlier this morning. Overnight oximetry was obtained with study started on room air but after several minutes with oxygen saturations in the 80s 1 L supplemental O2 was with persistent saturations of 84-85% at which time O2 was increased to 2 L. Thereafter saturation was generally above 90%. Overall 20 minutes of time was recorded with O2 sat < 89%. Oxygen saturation has been well- maintained while the patient is awake today on 1.5-2 L O2. The patient is alert and in no distress Breath sounds are slightly coarse bilaterally with increased wheezing posteriorly compared to prior days; no focal findings Abdomen soft, diminished bowel sounds Hemoglobin stable; patient advised she must be out of bed and upright for meals due to evident aspiration yesterday. Speech therapy has recommended thickened liquids and mechanical soft diet with ground meats. Patient reported having a "sour stomach" when she worked with speech therapy. Given GI symptoms and aspiration risk do not believe patient can stably discharge at this time. Reassess electrolytes in the morning in addition to CBC. Chest x-ray reviewed by myself-there is some haziness at the left base which may represent atelectasis versus aspiration however there is no clinical indication of acute infectious process. INR remained subtherapeutic-10 mg warfarin today. Son updated on patient's status. Patient will require nocturnal oxygen at a minimum at discharge. Hospital Course Summary Disclaimer: The visit summary below is not to be considered part of the above Progress Note.
[2017-03-18] MEDS: HYDRALAZINE 25 MG TABLET PO SCH ×2 (14:39→17:26)
[2017-03-18] MEDS: ATENOLOL 50 MG TABLET PO SCH ×2 (14:40→20:39)
[2017-03-18] MEDS: AMLODIPINE 10 MG TABLET PO SCH (14:40)
[2017-03-18] MEDS: MAGNESIUM OXIDE 400 MG TABLET PO SCH ×2 (14:41→20:38)
[2017-03-18] MEDS: LISINOPRIL 40 MG TABLET PO SCH (14:41)
[2017-03-18] MEDS: BuPROPion XL 300mg (24HR) TABLET PO SCH (14:41)
[2017-03-18] MEDS: CITALOPRAM 10 MG TABLET PO SCH (14:41)
[2017-03-18] MEDS: GUAIFENESIN/D-METHORPHAN 600mg/30mg TABLET PO SCH ×2 (14:41→20:39)
[2017-03-18] MEDS: FUROSEMIDE 80 MG TABLET PO SCH (14:41)
--- NOTE | 2017-03-18 15:11 | XRay Report ---
Indication: increased wheezing, concern for aspiration PROCEDURE: XR chest 1V: Encounter: Initial Comparison: March 17, 2017 Findings: Motion artifact. There is new obscuration of the left hemidiaphragm. Right lung appears grossly clear. No pneumothorax. Cardiac silhouette remains enlarged. Mediastinal contours are stable allowing for differences in rotation. Pulmonary vascularity is not well evaluated due to the motion. Impression: New obscuration of the left diaphragm could be due to atelectasis, pneumonia or aspiration. .
[2017-03-18] MEDS: SENNA + DOCUSATE TABLET PO PRN (20:38)
[2017-03-19] MEDS: ALBUTEROL/IPRATROPIUM 2.5mg-0.5mg/3ml NEB AEROSOL SCH ×4 (07:28→20:11)
--- NOTE | 2017-03-19 08:44 | Pharmacy Consult ---
Pharmacy Consult-Warfarin - Laboratory Information 03/15/17 03/16/17 03/17/17 04:27 04:02 04:41 INR 4.01 H 3.23 H 1.55 H 03/18/17 03/19/17 07:20 06:20 INR 1.20 1.26 H - Consult Information Lovenox started today until INR is therapeutic. Warfarin 10mg ordered for today. Will continue to monitor. Thank you.
[2017-03-19] MEDS: GABAPENTIN 600 MG TABLET PO SCH ×4 (10:37→21:16)
[2017-03-19] MEDS: ATENOLOL 50 MG TABLET PO SCH ×2 (10:38→21:15)
[2017-03-19] MEDS: BuPROPion XL 300mg (24HR) TABLET PO SCH (10:38)
[2017-03-19] MEDS: ENOXAPARIN 40 MG/0.4 ML INJECTION SQ SCH (10:38)
[2017-03-19] MEDS: CITALOPRAM 10 MG TABLET PO SCH (10:38)
[2017-03-19] MEDS: LISINOPRIL 40 MG TABLET PO SCH (10:39)
[2017-03-19] MEDS: AMLODIPINE 10 MG TABLET PO SCH (10:39)
[2017-03-19] MEDS: MAGNESIUM OXIDE 400 MG TABLET PO SCH ×2 (10:39→21:16)
[2017-03-19] MEDS: HYDRALAZINE 25 MG TABLET PO SCH ×2 (10:39→17:57)
[2017-03-19] MEDS: FUROSEMIDE 80 MG TABLET PO SCH (10:40)
[2017-03-19] MEDS: PRIMIDONE 50 MG TABLET PO SCH ×4 (10:40→21:15)
[2017-03-19] MEDS: SALINE 0.65% NASAL SPRAY 44 ML BOTTLE EA NOSTRIL SCH ×4 (10:40→21:16)
[2017-03-19] MEDS: GUAIFENESIN/D-METHORPHAN 600mg/30mg TABLET PO SCH ×2 (10:51→21:15)
[2017-03-19] MEDS ORDERED: WARFARIN 5 MG TABLET PO SCH (12:00)
--- NOTE | 2017-03-19 17:37 | Progress Note ---
- Date 03/19/17 Subjective: Mrs. Fitzpatrick was seen earlier today with her son at the bedside and late this afternoon with her daughter at the bedside. The patient complains of excess fatigue with inability to keep her eyes open, fatiguing when she eats, and sleeping all the time. She reports the symptoms are all new since she was hospitalized. Her arms and legs feel weak symmetrically and she denies focal weakness. She denies slow progression and onset of weakness/fatigue. She's been unable to feed herself for 2-3 days and is not eating well in part because she can't feed herself but also because she simply too tired to eat. She reports that she's been dropping things when she tries to hold them and that her arms and legs have been shaking. Her daughter reports that she's always had some tremulousness in her arms and at that is not in and of itself new. She denies dyspnea or cough today, has had no further nausea or vomiting, and reports having a bowel movement last night. She complains of generalized pain and achiness. She is not aware of fever or chills. Objective Vital signs: Temperature 96.5 F L 03/19/17 15:00 Pulse Rate 57 L 03/19/17 16:00 Respiratory Rate 16 03/19/17 15:00 Blood Pressure 104/55 03/19/17 15:00 Pulse Oximetry 95 - 1L NC 03/19/17 15:00 I/O 650/200 EXAM General-obese female, NAD, fatigued HEENT-eyes generally closed but intermittently opens partially/symmetrically; conjugate gaze, pupils equal; tongue midline, oropharynx clear Lungs-decreased breath sounds throughout, respirations nonlabored, breath sounds clear Cardiac-regular rhythm, S1-S2 Abd-soft, nontender, diminished bowel sounds Ext-trace edema bilateral lower extremities; muscle groups nontender Neuro-moves extremities weakly, can raise legs off the bed briefly, good dorsiflexion/plantarflexion; weak family development specialist and raises arms symmetrically from the elbows but cannot raise arms at the shoulders Psych-calm, cooperative - Height/Weight/BMI: Height 1.6 m Weight 120.5 kg Body Mass Index 48.3 Results - Labs CBC & Chem 7: 03/19/17 06:20 03/19/17 06:20 Labs: MCV 105.7, differential unremarkable INR 1.26 Microbiology Results: Microbiology 03/15/17 17:48 Sputum, Expectorated Gram Stain - moderate gram-positive cocci, few gram-positive rods, few budding East, moderate neutrophils 03/15/17 17:48 Sputum, Expectorated Sputum Culture -moderate growth Gram Negative Jose - Imaging and Cardiology Chest x-ray Status: image reviewed by me (portable chest x-ray obtained yesterday demonstrated vague infiltrate versus atelectasis at the left base, otherwise clear.) Assessment and Plan (1) Hypoxemia Current visit: Yes Status: Acute (2) Acute diastolic heart failure Current visit: Yes Status: Acute (3) HTN (hypertension) Problem details: Acute on chronic Current visit: Yes Status: Acute (4) COPD (chronic obstructive pulmonary disease) Current visit: Yes Status: Acute Assessment and Plan: Impression Acute CHF, diastolic, EF 50-55% Hypertensive urgency-POA, resolved Chronic hypertension Fatigue Acute kidney injury-not POA Hypoxia COPD Hyperglycemia/metabolic syndrome-A1c 6.3 History DVT Chronic warfarin therapy Morbid obesity-BMI 48.2 Peripheral neuropathy DDD/DJD Hypomagnesemia, POA Hyponatremia, POA-131 Dysphasia Plan GI symptoms that predominated over the past 2 days have subsided but fatigue and inability to provide any self-care have worsened progressively. Renal function has deteriorated (creatinine 0.7-1.7) and oral intake is virtually nonexistent. Nursing asked to assist with meals, nutritional supplements added. Lasix on hold, low-flow normal saline initiated. Lisinopril on hold due to impaired renal function. Primidone dose adjusted for renal function-may be contributing to excess fatigue. Patient worried she has a viral infection triggering fatigue, recheck respiratory viral panel although negative several days ago as was stool panel. Patient denies gradual progression of fatigue that would suggest myasthenia gravis but will screen acetylcholine receptor binding antibody. Consider empiric trial Mestinon or Tensilon test. Patient has had testing done for Dr. Dunn in the past and will ask him to evaluate on Tuesday if status does not stabilize/improve quickly. ABG now to exclude hypercarbia. Reassess chest x-ray in a.m.; sputum obtained after aspiration with mixed shawn on Gram stain and gram-negative jose reported on preliminary culture. Await final culture report. INR subtherapeutic again today, low-dose Lovenox added. Warfarin continued at 10 mg daily. Daughter and nursing provided supplemental history. DVT Prophylaxis: Lovenox, Coumadin Resuscitation Status: Do Not Resuscitate - Time spent with patient Time with patient PN: 35 minutes Coordination of Care: >50% of visit spent providing counseling/coordination of care Hospital Course Summary Disclaimer: The visit summary below is not to be considered part of the above Progress Note. Hospital Course: 03/14/17 Inpatient admission Acute CHF, presumed diastolic--full admission for lasix IV BID, KCl supp as needed, monitor renal function with wagner. Echo and consider cardiology consult. Essential HTN on lisinopril, amlodipine, hydralazine, and atenolol. HTN on ED eval with Lasix IV with brisk diuresis and improved BP. Hypoxia present on admit due to CHF. O2 2L with SpO2 from 84% to 93%. Diurese and reassess. COPD on Advair and albuterol. Likely Pulmonary HTN, f/u echo and ? MIKAL Hyperglycemia--check A1C with her denying DM2. Check TSH as well. Leukocytosis with no fever. UA and recheck. Hx of DVTs on warfarin bu INR 3.6 Hold with AM recheck. Morbid obesity BMI 48 03/15/17 Mrs. Fitzpatrick presented with cough and symptomatic dyspnea which has progressed over the past week. There's been minimal sputum production and no other symptoms to suggest infectious etiology. BNP is elevated and chest x-ray compatible with congestive heart failure. Blood pressure was significantly elevated on admission and is improving with diuresis but suggests underlying diastolic dysfunction triggered by hypertensive urgency. EKG was without acute changes by my review and troponin unremarkable on presentation. The patient is diuresing well and cough has improved with diuresis to date. Continue same. Echocardiogram pending. Patient required 2-4 L oxygen overnight but is currently stable on 1 L. Continue to titrate oxygen as saturation permits. Although cough has been typically nonproductive the patient reports increased sputum production yesterday; sputum culture will be obtained if possible to exclude respiratory pathogen and respiratory viral panel will be screened. Albuterol when necessary. Will likely benefit from overnight oximetry prior to discharge-body habitus suggest high risk of sleep apnea or obesity hypoventilation syndrome. Hyponatremia likely due to volume overload; hypomagnesemia present on admission- magnesium will be acutely with chronic replacement continued as she is on chronic diuretic therapy. Warfarin on hold at present due to elevated INR. Supplemental history provided by the patient's son and daughter; outpatient records reviewed. Patient will return to the care of Dr. Keys at discharge. 03/16/17 Continue with Lasix 40mg IV q 8 hours to help motivate fluid - urine output exceeding intake. Creatinine stable at 0.9 and potassium 4.5 with magnesium 1.6 today. CO2 showing increase to 35 this am. Will give Diamox 500mg x2 6 hours apart today. Additional oral Magnesium 400mg today at noon as Mg low normal at 1.6 and patient on diuretic therapy. Initiate bladder retraining. Continue to wean O2 as able - currently using between 0.5-1L to maintain saturations. Will add routine DuoNeb QID due to COPD and wheezing. Acapella QID to help loosen secretions. IS to help maximize lung volume. Nasal saline QID due to nasal congestion. Add Mucinex DM BID to help decrease cough and secretions. Speech to check swallow due to coughing with oral intake. PT/OT to eval and treat - gen debility and functional decline. INR 3.23 this am - pharm managing. Continue daily INR. Will recheck BMP & Mg in am due to hyponatremia and diuretic use. Recheck CBC in an due to Coumadin use. Recheck CXR tomorrow for follow up of pulmonary edema. 03/17/17 Lasix changed to 80mg daily. Josie Monteiro. Will do overnight oximetry. Continue with DuoNeb, Acapella and mucolytics. Coumadin managing warfarin dosing , INR today 1.55 03/18/17 Will obtain a Chest X-ray for evaluation given increasing wheezing today. Concern for aspiration. Did ask speech therapy to reevaluate patient's swallow today. Asked nursing staff to get patient up out of the chair at least twice a day for meals pale. Will likely need to utilize Awa lift for transfers. Continue with Lasix 80 milligrams daily for ongoing diuresis seen Tessalmichael Wagner and Mucinex BID to help decrease cough Continue PT/OT for strengthening 03/19/17 GI symptoms that predominated over the past 2 days have subsided but fatigue and inability to provide any self-care have worsened progressively. Renal function has deteriorated (creatinine 0.7-1.7) and oral intake is virtually nonexistent. Nursing asked to assist with meals, nutritional supplements added. Lasix on hold, low-flow normal saline initiated. Lisinopril on hold due to impaired renal function. Primidone dose adjusted for renal function-may be contributing to excess fatigue. Patient worried she has a viral infection triggering fatigue, recheck respiratory viral panel although negative several days ago as was stool panel. Patient denies gradual progression of fatigue that would suggest myasthenia gravis but will screen acetylcholine receptor binding antibody. Consider empiric trial Mestinon or Tensilon test. Patient has had testing done for Dr. Dunn in the past and will ask him to evaluate on Tuesday if status does not stabilize/improve quickly. ABG now to exclude hypercarbia. Reassess chest x-ray in a.m.; sputum obtained after aspiration with mixed shawn on Gram stain and gram-negative jose reported on preliminary culture. Await final culture report. INR subtherapeutic again today, low-dose Lovenox added. Warfarin continued at 10 mg daily.
[2017-03-19] MEDS: NS 1,000 ML IV SCH (21:14)
[2017-03-20] MEDS: ALBUTEROL/IPRATROPIUM 2.5mg-0.5mg/3ml NEB AEROSOL SCH ×4 (06:56→19:16)
[2017-03-20] MEDS: ATENOLOL 50 MG TABLET PO SCH ×3 (08:49→22:55)
[2017-03-20] MEDS: PRIMIDONE 50 MG TABLET PO SCH ×3 (08:50→22:56)
[2017-03-20] MEDS: MAGNESIUM OXIDE 400 MG TABLET PO SCH ×3 (08:50→22:56)
[2017-03-20] MEDS: AMLODIPINE 10 MG TABLET PO SCH (08:50)
[2017-03-20] MEDS: GABAPENTIN 600 MG TABLET PO SCH ×5 (08:50→22:56)
[2017-03-20] MEDS: HYDRALAZINE 25 MG TABLET PO SCH ×2 (08:50→18:00)
[2017-03-20] MEDS: BuPROPion XL 300mg (24HR) TABLET PO SCH (08:51)
[2017-03-20] MEDS: GUAIFENESIN/D-METHORPHAN 600mg/30mg TABLET PO SCH ×3 (08:51→22:56)
[2017-03-20] MEDS: CITALOPRAM 10 MG TABLET PO SCH (08:51)
[2017-03-20] MEDS: ENOXAPARIN 40 MG/0.4 ML INJECTION SQ SCH (08:51)
[2017-03-20] MEDS: SALINE 0.65% NASAL SPRAY 44 ML BOTTLE EA NOSTRIL SCH ×4 (08:52→22:57)
--- NOTE | 2017-03-20 09:08 | Pharmacy Consult ---
Pharmacy Consult-Warfarin - Laboratory Information 03/15/17 03/16/17 03/17/17 04:27 04:02 04:41 INR 4.01 H 3.23 H 1.55 H 03/18/17 03/19/17 03/20/17 07:20 06:20 08:00 INR 1.20 1.26 H 1.70 H - Consult Information Order for warfarin 7.5mg for noon today. Thank you.
[2017-03-20] MEDS ORDERED: WARFARIN 7.5 MG TABLET PO SCH (12:00)
--- NOTE | 2017-03-20 17:09 | Progress Note ---
<TerryAzeb D - Last Filed: 03/20/17 17:05> - Date 03/20/17 Subjective: Keely is seen in follow up. She is up in chair via lift. Remains very weak and unable to complete ADLs for herself. She reports that up to a week ago, "I could take care of everything just fine." She is unable to walk alone, but is able to transfer to a wheelchair. She does endorse getting a recent flu shot, but cannot tell me when. She reports no specific LE numbness, but does have weakness of arms or legs. Does not feel SOA per her report. Feels like she has "something stuck in her esophagus." Assisted with drink. She is unable to push call light button- I asked staff to get her a low pressure button. Again, she denies difficulty in breathing and no perceived increase in respiratory effort. Objective Vital signs: Temperature 96.8 F 03/20/17 07:26 Pulse Rate 66 03/20/17 16:00 Respiratory Rate 20 03/20/17 16:00 Blood Pressure 124/62 03/20/17 16:00 Pulse Oximetry 99 03/20/17 16:00 Height/Weight/BMI: Height 1.6 m Weight 122 kg Body Mass Index 48.3 - Constitutional Present: mild distress, morbidly obese, disheveled, cooperative - Routine HEENT Exam Head: Present: normocephalic, atraumatic Eye: Present: EOMI, PERRL ENT: Present: mucous membranes dry Comments: Able to drink thickened liquids w/o difficulty. - Routine Respiratory Exam Present: decreased breath sounds, distant breath sounds, diminished air movement. Absent: accessory muscle use, dyspnea Comments: Diminished effort. She is not overtly dyspneic. No crackles or wheezes appreciated, but difficult due to body habitus. - Routine Cardiovascular Exam Present: RRR, S1, S2, no murmur - Routine Abdominal Exam Present: soft, non distended, non tender - Routine Extremities Exam Present: edema, non tender. Absent: full ROM - Routine Musculoskeletal Exam Musculoskeletal: Present: no clubbing or cyanosis, limited range of motion. Absent: normal strength, normal gait, moving extremities well - Routine Skin Exam Present: intact, dry, warm - Routine Neurological Exam Present: alert, sensory deficit, motor deficit, abnormal gait. Absent: CN II- XII intact, normal tone, normal speech Speech is a bit slurred. No obvious facial droop appreciated. She is alert and able to communicate. She is able to lift arms, wiggle fingers. Project Facilitator is markedly weakened in bilateral hands. MS is 2/5 bilaterally UE. LE unable to move independently. - Routine Psychiatric Exam Present: cooperative Results - Labs CBC & Chem 7: 03/20/17 08:00 03/20/17 08:00 Microbiology Results: Microbiology 03/15/17 17:48 Sputum, Expectorated Gram Stain - Final 03/15/17 17:48 Sputum, Expectorated Sputum Culture - Preliminary Escherichia coli Gram Negative Jose - ABG Interpretation ABG results: 03/19/17 03/19/17 03/20/17 17:50 22:45 03:00 ABG pH 7.290 L 7.270 L 7.310 L ABG pCO2 69 H* 70 H* 69 H* ABG pO2 70 L 74 L 71 L ABG HCO3 33 H 32 H 35 H ABG Total CO2 35.3 H 34.2 H 36.8 H ABG O2 Saturation 92.0 L 92.0 L 92.0 L ABG Base Excess 4.6 H 3.3 H 6.3 H 03/20/17 07:20 ABG pH 7.330 L ABG pCO2 65 H* ABG pO2 58 L ABG HCO3 34 H ABG Total CO2 36.3 H ABG O2 Saturation 88.0 L ABG Base Excess 6.4 H - Imaging and Cardiology Chest x-ray Additional comments: Impression: New obscuration of the left diaphragm could be due to atelectasis, pneumonia or aspiration. . Assessment and Plan (1) Hypoxemia Current visit: Yes Status: Acute (2) Acute diastolic heart failure Current visit: Yes Status: Acute (3) HTN (hypertension) Problem details: Acute on chronic Current visit: Yes Status: Acute (4) COPD (chronic obstructive pulmonary disease) Current visit: Yes Status: Acute Assessment and Plan: Impression Acute CHF, diastolic, EF 50-55% Hypertensive urgency-POA, resolved Chronic hypertension Fatigue Acute kidney injury-not POA Hypoxia COPD Hyperglycemia/metabolic syndrome-A1c 6.3 History DVT Chronic warfarin therapy Morbid obesity-BMI 48.2 Peripheral neuropathy DDD/DJD Hypomagnesemia, POA Hyponatremia, POA-131 Dysphasia Progressive ascending weakness Plan 03/20/17 Patient continues to c/o progressive weakness. W/U, Empiric tx in progress of Osiel. Other consideration would be Guillian-Wellman syndrome. She had a recent influenza vaccine and lists unknown allergy to Pneumococcal and tetanus vaccine. Given change in strength, obtain a CT of head tonight. MRI in past was normal- brain. Will get Tegretol level sent out. Consult Neuro tomorrow. May need to back off Gabapentin. PT/OT when she starts to feel better. Continue pulmonary support with Bipap, nebs, etc. Sputum cx + E.Coli- will start Cefepime today given concern for developing PNA. continue IVF for supplement of PO intake. Does reports some concern for dysphagia. Add IV PPI for now to see if this is due to reflux vs. esophageal dysmotility. Continue Warfarin- pharmacy following. Repeat labs and CXR in AM. remains ill. High risk for adverse outcome given severe obesity, frailty, advanced age. DVT Prophylaxis: Coumadin Resuscitation Status: Do Not Resuscitate Hospital Course Summary Disclaimer: The visit summary below is not to be considered part of the above Progress Note. Hospital Course: 03/14/17 Inpatient admission Acute CHF, presumed diastolic--full admission for lasix IV BID, KCl supp as needed, monitor renal function with wagner. Echo and consider cardiology consult. Essential HTN on lisinopril, amlodipine, hydralazine, and atenolol. HTN on ED eval with Lasix IV with brisk diuresis and improved BP. Hypoxia present on admit due to CHF. O2 2L with SpO2 from 84% to 93%. Diurese and reassess. COPD on Advair and albuterol. Likely Pulmonary HTN, f/u echo and ? MIKAL Hyperglycemia--check A1C with her denying DM2. Check TSH as well. Leukocytosis with no fever. UA and recheck. Hx of DVTs on warfarin bu INR 3.6 Hold with AM recheck. Morbid obesity BMI 48 03/15/17 Mrs. Fitzpatrick presented with cough and symptomatic dyspnea which has progressed over the past week. There's been minimal sputum production and no other symptoms to suggest infectious etiology. BNP is elevated and chest x-ray compatible with congestive heart failure. Blood pressure was significantly elevated on admission and is improving with diuresis but suggests underlying diastolic dysfunction triggered by hypertensive urgency. EKG was without acute changes by my review and troponin unremarkable on presentation. The patient is diuresing well and cough has improved with diuresis to date. Continue same. Echocardiogram pending. Patient required 2-4 L oxygen overnight but is currently stable on 1 L. Continue to titrate oxygen as saturation permits. Although cough has been typically nonproductive the patient reports increased sputum production yesterday; sputum culture will be obtained if possible to exclude respiratory pathogen and respiratory viral panel will be screened. Albuterol when necessary. Will likely benefit from overnight oximetry prior to discharge-body habitus suggest high risk of sleep apnea or obesity hypoventilation syndrome. Hyponatremia likely due to volume overload; hypomagnesemia present on admission- magnesium will be acutely with chronic replacement continued as she is on chronic diuretic therapy. Warfarin on hold at present due to elevated INR. Supplemental history provided by the patient's son and daughter; outpatient records reviewed. Patient will return to the care of Dr. Keys at discharge. 03/16/17 Continue with Lasix 40mg IV q 8 hours to help motivate fluid - urine output exceeding intake. Creatinine stable at 0.9 and potassium 4.5 with magnesium 1.6 today. CO2 showing increase to 35 this am. Will give Diamox 500mg x2 6 hours apart today. Additional oral Magnesium 400mg today at noon as Mg low normal at 1.6 and patient on diuretic therapy. Initiate bladder retraining. Continue to wean O2 as able - currently using between 0.5-1L to maintain saturations. Will add routine DuoNeb QID due to COPD and wheezing. Acapella QID to help loosen secretions. IS to help maximize lung volume. Nasal saline QID due to nasal congestion. Add Mucinex DM BID to help decrease cough and secretions. Speech to check swallow due to coughing with oral intake. PT/OT to eval and treat - gen debility and functional decline. INR 3.23 this am - pharm managing. Continue daily INR. Will recheck BMP & Mg in am due to hyponatremia and diuretic use. Recheck CBC in an due to Coumadin use. Recheck CXR tomorrow for follow up of pulmonary edema. 03/17/17 Lasix changed to 80mg daily. Josie Monteiro. Will do overnight oximetry. Continue with DuoNeb, Acapella and mucolytics. Coumadin managing warfarin dosing , INR today 1.55 03/18/17 Will obtain a Chest X-ray for evaluation given increasing wheezing today. Concern for aspiration. Did ask speech therapy to reevaluate patient's swallow today. Asked nursing staff to get patient up out of the chair at least twice a day for meals pale. Will likely need to utilize Awa lift for transfers. Continue with Lasix 80 milligrams daily for ongoing diuresis seen [place] Wagner and Mucinex BID to help decrease cough Continue PT/OT for strengthening 03/19/17 GI symptoms that predominated over the past 2 days have subsided but fatigue and inability to provide any self-care have worsened progressively. Renal function has deteriorated (creatinine 0.7-1.7) and oral intake is virtually nonexistent. Nursing asked to assist with meals, nutritional supplements added. Lasix on hold, low-flow normal saline initiated. Lisinopril on hold due to impaired renal function. Primidone dose adjusted for renal function-may be contributing to excess fatigue. Patient worried she has a viral infection triggering fatigue, recheck respiratory viral panel although negative several days ago as was stool panel. Patient denies gradual progression of fatigue that would suggest myasthenia gravis but will screen acetylcholine receptor binding antibody. Consider empiric trial Mestinon or Tensilon test. Patient has had testing done for Dr. Dunn in the past and will ask him to evaluate on Tuesday if status does not stabilize/improve quickly. ABG now to exclude hypercarbia. Reassess chest x-ray in a.m.; sputum obtained after aspiration with mixed shawn on Gram stain and gram-negative jose reported on preliminary culture. Await final culture report. INR subtherapeutic again today, low-dose Lovenox added. Warfarin continued at 10 mg daily. 03/20/17 17:21 03/20/17 Patient continues to c/o progressive weakness. W/U, Empiric tx in progress of Osiel. Other consideration would be Guillian-Wellman syndrome. She had a recent influenza vaccine and lists unknown allergy to Pneumococcal and tetanus vaccine. Given change in strength, obtain a CT of head tonight. MRI in past was normal- brain. Will get Tegretol level sent out. Consult Neuro tomorrow. May need to back off Gabapentin. PT/OT when she starts to feel better. Continue pulmonary support with Bipap, nebs, etc. Sputum cx + E.Coli- will start Cefepime today given concern for developing PNA. continue IVF for supplement of PO intake. Does reports some concern for dysphagia. Add IV PPI for now to see if this is due to reflux vs. esophageal dysmotility. Continue Warfarin- pharmacy following. Repeat labs and CXR in AM. remains ill. High risk for adverse outcome given severe obesity, frailty, advanced age. <Ayleen Sheffield - Last Filed: 03/20/17 20:00> - Date 03/20/17 Objective Vital signs: Results - Labs CBC & Chem 7: 03/20/17 08:00 03/20/17 08:00 - ABG Interpretation Attestation: I reviewed and interpreted this ABG. ABG results: 03/19/17 03/19/17 03/20/17 17:50 22:45 03:00 ABG pH 7.290 L 7.270 L 7.310 L ABG pCO2 69 H* 70 H* 69 H* ABG pO2 70 L 74 L 71 L ABG HCO3 33 H 32 H 35 H ABG Total CO2 35.3 H 34.2 H 36.8 H ABG O2 Saturation 92.0 L 92.0 L 92.0 L ABG Base Excess 4.6 H 3.3 H 6.3 H 03/20/17 07:20 ABG pH 7.330 L ABG pCO2 65 H* ABG pO2 58 L ABG HCO3 34 H ABG Total CO2 36.3 H ABG O2 Saturation 88.0 L ABG Base Excess 6.4 H Interpretation: respiratory acidosis (acute/chronic with compensatory metabolic alkalosis and hypoxia) Assessment and Plan (1) Hypoxemia Current visit: Yes Status: Acute (2) Acute diastolic heart failure Current visit: Yes Status: Acute (3) HTN (hypertension) Problem details: Acute on chronic Current visit: Yes Status: Acute (4) COPD (chronic obstructive pulmonary disease) Current visit: Yes Status: Acute Assessment and Plan: I have independently evaluated and examined this patient. I reviewed the chart, the patient's history, and the GRILL ATTENDANT/PA's documented findings as above. We discussed and formulated the assessment and plan as above with additions as below: Mrs. Fitzpatrick continues to report excessive fatigue and inability to keep her eyes open. She didn't like BiPAP last night but was able to keep the mask on. She doesn't think she feels any more awake today after using it than she did yesterday. Blood gas prior to BiPAP with acute component of hypercarbia partially improved with BiPAP on serial ABGs. The patient continues to describe feeling weak all over without focal changes and reports she always feels short of breath. EOMI (patient can't keep her eyes open long enough to complete eye movements- closes eyes going from right to left causes, reopens) Respirations are nonlabored with diminished airflow and anterior breath sounds are clear, lateral breath sounds very diminished-no wheezing appreciated Abdomen is soft, diminished bowel sounds Minor twitching noted anterior left shoulder-no fasciculations; no mild clonus present today or tremor present Biomedical Repair Technician 3/5, dorsiflexion/plantarflexion slightly better on the left than the right but left tested earlier and exam than the right and patient was more fatigued-minor difference Escherichia coli in sputum pansensitive-switched to ceftriaxone INR 1.7 CT to be obtained in a.m. due to limited staff available in radiology this evening Dr. Dunn consulted for the morning. Renal function improved with low-volume fluids. Plans discussed with nursing and RT. In addition to above diagnoses please add: Obesity hypoventilation syndrome Hospital Course Summary Disclaimer: The visit summary below is not to be considered part of the above Progress Note.
[2017-03-20] MEDS ORDERED: CEFEPIME 2 GM in NS 100 ML IV SCH (17:15)
[2017-03-20] MEDS: NS 1,000 ML IV SCH (17:59)
[2017-03-20] MEDS: PANTOPRAZOLE 40 MG INJECTION IVP SCH ×2 (19:51→22:56)
[2017-03-20] MEDS: CEFTRIAXONE 1 G in NS 100 ML IV SCH (21:48)
[2017-03-21] MEDS: ALBUTEROL/IPRATROPIUM 2.5mg-0.5mg/3ml NEB AEROSOL SCH ×4 (07:35→20:10)
[2017-03-21] MEDS: ENOXAPARIN 40 MG/0.4 ML INJECTION SQ SCH (09:49)
[2017-03-21] MEDS: BuPROPion XL 300mg (24HR) TABLET PO SCH (09:49)
[2017-03-21] MEDS: PRIMIDONE 50 MG TABLET PO SCH ×2 (09:49→22:29)
[2017-03-21] MEDS: PANTOPRAZOLE 40 MG INJECTION IVP SCH ×2 (09:49→22:29)
[2017-03-21] MEDS: GABAPENTIN 600 MG TABLET PO SCH ×4 (09:49→22:28)
[2017-03-21] MEDS: GUAIFENESIN/D-METHORPHAN 600mg/30mg TABLET PO SCH ×2 (09:49→22:28)
[2017-03-21] MEDS: ATENOLOL 50 MG TABLET PO SCH (09:50)
[2017-03-21] MEDS: HYDRALAZINE 25 MG TABLET PO SCH ×2 (09:50→16:54)
[2017-03-21] MEDS: CITALOPRAM 10 MG TABLET PO SCH (09:50)
[2017-03-21] MEDS: AMLODIPINE 10 MG TABLET PO SCH (09:50)
[2017-03-21] MEDS: MAGNESIUM OXIDE 400 MG TABLET PO SCH (09:50)
[2017-03-21] MEDS: SALINE FLUSH 10ml SYRINGE IVF PRN (09:51)
[2017-03-21] MEDS: SALINE 0.65% NASAL SPRAY 44 ML BOTTLE EA NOSTRIL SCH ×4 (09:51→22:31)
--- NOTE | 2017-03-21 10:23 | XRay Report ---
Indication: soa PROCEDURE: XR chest 1V: Encounter: Initial Comparison: March 18, 2017 Findings: Mildly increased interstitial markings. Improved aeration of the left lower lobe. No pneumothorax or significant pleural fluid. Cardiac silhouette remains enlarged. Mediastinal contours are stable. Pulmonary vascularity is mildly prominent. Impression: Mild pulmonary edema. Improving aeration of the left base. .
--- NOTE | 2017-03-21 11:28 | Pharmacy Consult ---
Pharmacy Consult-Warfarin - Laboratory Information 03/15/17 03/16/17 03/17/17 04:27 04:02 04:41 INR 4.01 H 3.23 H 1.55 H 03/18/17 03/19/17 03/20/17 07:20 06:20 08:00 INR 1.20 1.26 H 1.70 H 03/21/17 08:25 INR 1.90 H - Consult Information Patient's INR increased to 1.90 today after having a 7.5 mg dose yesterday. Patient is being bridged with Lovenox. Increase the warfarin dose to 8 mg today. Thank you for the warfarin consult. Kimberly Lynch, LaminD
--- NOTE | 2017-03-21 11:53 | Progress Note ---
<Anne Espinoza - Last Filed: 03/21/17 14:21> - Date 03/21/17 Subjective: Patient is seen sitting in her chair. She complains of trouble swallowing. She was having increasing difficulty swallowing thickened liquids last evening. Speech will be seeing her again this morning. She feels her cough is better but she is SOA. Complains of weakness. Can usually bear wt to transfer, and feed herself, but is so weak now, she cannot do these things. Due to her progressive weakness, consult was placed to Dr. Dunn. Patient would not wear the BiPAP overnight. She stated she didn't want to wear it anymore. "why won't you let me , I just want to ." She continues on oxygen requiring 1 L this morning. Objective Vital signs: Temperature 96.9 F 03/21/17 07:55 Pulse Rate 70 03/21/17 07:55 Respiratory Rate 16 03/21/17 07:55 Blood Pressure 118/62 03/21/17 07:55 Pulse Oximetry 97 03/21/17 07:55 Height/Weight/BMI: Height 1.6 m Weight 123.1 kg Body Mass Index 48.3 - Constitutional Present: no acute distress, well nourished, well developed, morbidly obese - Routine HEENT Exam Head: Present: normocephalic, atraumatic - Routine Respiratory Exam Present: CTA bilaterally (when auscultated anteriorly. Exam limited due to body habitus), diminished air movement. Absent: respiratory distress, wheezes Comments: Wheezing noted with coughing. - Routine Cardiovascular Exam Present: RRR, S1, S2. Absent: murmur - Routine Abdominal Exam Present: soft, normoactive bowel sounds, non distended. Absent: tenderness - Routine Extremities Exam Present: edema, normal capillary refill - Routine Skin Exam Present: dry, warm - Routine Neurological Exam Present: alert she has equal cylinder filler strength 4/5. She is able to open her eyes for short periods of time. She answers questions appropriately. - Routine Lymphatic Exam Lymphatic: Absent: adenopathy - Routine Psychiatric Exam Present: cooperative Results - Labs CBC & Chem 7: 03/21/17 04:09 03/21/17 04:09 Microbiology Results: Microbiology 03/15/17 17:48 Sputum, Expectorated Gram Stain - Final 03/15/17 17:48 Sputum, Expectorated Sputum Culture - Final Escherichia coli Klebsiella oxytoca Normal Respiratory Shawn - ABG Interpretation ABG results: 03/19/17 03/19/17 03/20/17 17:50 22:45 03:00 ABG pH 7.290 L 7.270 L 7.310 L ABG pCO2 69 H* 70 H* 69 H* ABG pO2 70 L 74 L 71 L ABG HCO3 33 H 32 H 35 H ABG Total CO2 35.3 H 34.2 H 36.8 H ABG O2 Saturation 92.0 L 92.0 L 92.0 L ABG Base Excess 4.6 H 3.3 H 6.3 H 03/20/17 07:20 ABG pH 7.330 L ABG pCO2 65 H* ABG pO2 58 L ABG HCO3 34 H ABG Total CO2 36.3 H ABG O2 Saturation 88.0 L ABG Base Excess 6.4 H Assessment and Plan (1) Hypoxemia Current visit: Yes Status: Acute (2) Acute diastolic heart failure Current visit: Yes Status: Acute (3) HTN (hypertension) Problem details: Acute on chronic Current visit: Yes Status: Acute (4) COPD (chronic obstructive pulmonary disease) Current visit: Yes Status: Acute Assessment and Plan: Assessment: Acute CHF, diastolic, EF 50-55% Hypertensive urgency-POA, resolved Obesity hypoventilation syndrome Chronic hypertension Fatigue Acute kidney injury-not POA Hypoxia COPD Hyperglycemia/metabolic syndrome-A1c 6.3 History DVT Chronic warfarin therapy Morbid obesity-BMI 48.2 Peripheral neuropathy DDD/DJD Hypomagnesemia, POA Hyponatremia, POA-131 Dysphasia Progressive ascending weakness Plan: ~ Dr. Dunn would like to empirically start Mestinon 2mg IV 3 times a day ( if p.o., she could take 60 mg 3 times a day). Will hold atenolol d/t s.e. of tiffany with mestinon. Her pressures are stable. Her acetylcholine antibodies labs are pending. Dr. Dunn is most suspicious that this is general decompensation from CHF and pneumonia. If she continues to decline, he would recommend spinal tap to check for Guillain Buxton. At this point, he is not suspicious for this. He did also mention that most patients, regardless of whether they have myasthenia gravis or not, will tend to "perk up" with the Mestinon. He also mentioned prednisone would be an option to try as it may help with myasthenia and lung inflammation associated with pneumonia. ~ Given her continued problems with swallowing and evaluation per speech therapy , will order an esophagram. ~ She has grown out e. Coli and Klebsiella (pansensitive with the exception of the Klebsiella resistant to ampicillin). Continue Rocephin. ~ Continue warfarin for DVT prophylaxis (past history). She is also on Lovenox, which I assume will be discontinued once her INR is therapeutic. ~ Hold magnesium at present time as magnesium level is elevated. ~ She has several medications which could contribute to serotonin syndrome. Will DC guaifenesin/dextromethorphan and just continue with guaifenesin only. Could consider decreasing gabapentin, although patient continues to complain of neuropathic pain. Hospital Course Summary Disclaimer: The visit summary below is not to be considered part of the above Progress Note. Hospital Course: 03/14/17 Inpatient admission Acute CHF, presumed diastolic--full admission for lasix IV BID, KCl supp as needed, monitor renal function with wagner. Echo and consider cardiology consult. Essential HTN on lisinopril, amlodipine, hydralazine, and atenolol. HTN on ED eval with Lasix IV with brisk diuresis and improved BP. Hypoxia present on admit due to CHF. O2 2L with SpO2 from 84% to 93%. Diurese and reassess. COPD on Advair and albuterol. Likely Pulmonary HTN, f/u echo and ? MIKAL Hyperglycemia--check A1C with her denying DM2. Check TSH as well. Leukocytosis with no fever. UA and recheck. Hx of DVTs on warfarin bu INR 3.6 Hold with AM recheck. Morbid obesity BMI 48 03/15/17 Mrs. Fitzpatrick presented with cough and symptomatic dyspnea which has progressed over the past week. There's been minimal sputum production and no other symptoms to suggest infectious etiology. BNP is elevated and chest x-ray compatible with congestive heart failure. Blood pressure was significantly elevated on admission and is improving with diuresis but suggests underlying diastolic dysfunction triggered by hypertensive urgency. EKG was without acute changes by my review and troponin unremarkable on presentation. The patient is diuresing well and cough has improved with diuresis to date. Continue same. Echocardiogram pending. Patient required 2-4 L oxygen overnight but is currently stable on 1 L. Continue to titrate oxygen as saturation permits. Although cough has been typically nonproductive the patient reports increased sputum production yesterday; sputum culture will be obtained if possible to exclude respiratory pathogen and respiratory viral panel will be screened. Albuterol when necessary. Will likely benefit from overnight oximetry prior to discharge-body habitus suggest high risk of sleep apnea or obesity hypoventilation syndrome. Hyponatremia likely due to volume overload; hypomagnesemia present on admission- magnesium will be acutely with chronic replacement continued as she is on chronic diuretic therapy. Warfarin on hold at present due to elevated INR. Supplemental history provided by the patient's son and daughter; outpatient records reviewed. Patient will return to the care of Dr. Keys at discharge. 03/16/17 Continue with Lasix 40mg IV q 8 hours to help motivate fluid - urine output exceeding intake. Creatinine stable at 0.9 and potassium 4.5 with magnesium 1.6 today. CO2 showing increase to 35 this am. Will give Diamox 500mg x2 6 hours apart today. Additional oral Magnesium 400mg today at noon as Mg low normal at 1.6 and patient on diuretic therapy. Initiate bladder retraining. Continue to wean O2 as able - currently using between 0.5-1L to maintain saturations. Will add routine DuoNeb QID due to COPD and wheezing. Acapella QID to help loosen secretions. IS to help maximize lung volume. Nasal saline QID due to nasal congestion. Add Mucinex DM BID to help decrease cough and secretions. Speech to check swallow due to coughing with oral intake. PT/OT to eval and treat - gen debility and functional decline. INR 3.23 this am - pharm managing. Continue daily INR. Will recheck BMP & Mg in am due to hyponatremia and diuretic use. Recheck CBC in an due to Coumadin use. Recheck CXR tomorrow for follow up of pulmonary edema. 03/17/17 Lasix changed to 80mg daily. Josie Monteiro. Will do overnight oximetry. Continue with DuoNeb, Acapella and mucolytics. Coumadin managing warfarin dosing , INR today 1.55 03/18/17 Will obtain a Chest X-ray for evaluation given increasing wheezing today. Concern for aspiration. Did ask speech therapy to reevaluate patient's swallow today. Asked nursing staff to get patient up out of the chair at least twice a day for meals pale. Will likely need to utilize Awa lift for transfers. Continue with Lasix 80 milligrams daily for ongoing diuresis seen [place] Wagner and Mucinex BID to help decrease cough Continue PT/OT for strengthening 03/19/17 GI symptoms that predominated over the past 2 days have subsided but fatigue and inability to provide any self-care have worsened progressively. Renal function has deteriorated (creatinine 0.7-1.7) and oral intake is virtually nonexistent. Nursing asked to assist with meals, nutritional supplements added. Lasix on hold, low-flow normal saline initiated. Lisinopril on hold due to impaired renal function. Primidone dose adjusted for renal function-may be contributing to excess fatigue. Patient worried she has a viral infection triggering fatigue, recheck respiratory viral panel although negative several days ago as was stool panel. Patient denies gradual progression of fatigue that would suggest myasthenia gravis but will screen acetylcholine receptor binding antibody. Consider empiric trial Mestinon or Tensilon test. Patient has had testing done for Dr. Dunn in the past and will ask him to evaluate on Tuesday if status does not stabilize/improve quickly. ABG now to exclude hypercarbia. Reassess chest x-ray in a.m.; sputum obtained after aspiration with mixed shawn on Gram stain and gram-negative drea reported on preliminary culture. Await final culture report. INR subtherapeutic again today, low-dose Lovenox added. Warfarin continued at 10 mg daily. 03/20/17 17:21 03/20/17 Patient continues to c/o progressive weakness. W/U, Empiric tx in progress of Os[place]. Other consideration would be Guillian-Buxton syndrome. She had a recent influenza vaccine and lists unknown allergy to Pneumococcal and tetanus vaccine. Given change in strength, obtain a CT of head tonight. MRI in past was normal- brain. Will get Tegretol level sent out. Consult Neuro tomorrow. May need to back off Gabapentin. PT/OT when she starts to feel better. Continue pulmonary support with Bipap, nebs, etc. Sputum cx + E.Coli- will start Cefepime today given concern for developing PNA. continue IVF for supplement of PO intake. Does reports some concern for dysphagia. Add IV PPI for now to see if this is due to reflux vs. esophageal dysmotility. Continue Warfarin- pharmacy following. Repeat labs and CXR in AM. remains ill. High risk for adverse outcome given severe obesity, frailty, advanced age. <Ck Hughes Dwayne IV - Last Filed: 03/21/17 19:01> - Date 03/21/17 Objective Vital signs: Temperature 96.8 F 03/21/17 15:48 Pulse Rate 69 03/21/17 15:48 Respiratory Rate 18 03/21/17 16:56 Blood Pressure 172/77 H 03/21/17 15:48 Pulse Oximetry 99 03/21/17 16:56 Height/Weight/BMI: Height 5 ft 3 in Weight 123.1 kg Body Mass Index 48.3 Results - Labs CBC & Chem 7: 03/21/17 04:09 03/21/17 04:09 Microbiology Results: Microbiology 03/15/17 17:48 Sputum, Expectorated Gram Stain - Final 03/15/17 17:48 Sputum, Expectorated Sputum Culture - Final Escherichia coli Klebsiella oxytoca Normal Respiratory Shawn - ABG Interpretation ABG results: 03/19/17 03/19/17 03/20/17 17:50 22:45 03:00 ABG pH 7.290 L 7.270 L 7.310 L ABG pCO2 69 H* 70 H* 69 H* ABG pO2 70 L 74 L 71 L ABG HCO3 33 H 32 H 35 H ABG Total CO2 35.3 H 34.2 H 36.8 H ABG O2 Saturation 92.0 L 92.0 L 92.0 L ABG Base Excess 4.6 H 3.3 H 6.3 H 03/20/17 07:20 ABG pH 7.330 L ABG pCO2 65 H* ABG pO2 58 L ABG HCO3 34 H ABG Total CO2 36.3 H ABG O2 Saturation 88.0 L ABG Base Excess 6.4 H Assessment and Plan (1) Hypoxemia Current visit: Yes Status: Acute (2) Acute diastolic heart failure Current visit: Yes Status: Acute (3) HTN (hypertension) Problem details: Acute on chronic Current visit: Yes Status: Acute (4) COPD (chronic obstructive pulmonary disease) Current visit: Yes Status: Acute Assessment and Plan: I have independently evaluated and examined this patient. I reviewed the chart, the patient's history, and the UPPER CUTTER/PA's documented findings as above. We discussed and formulated the assessment and plan as above with additions as below: Patient c/o continued weakness. c/o dry mouth. Barium swallow concerning for esophageal dissection. Results d/w patient and her daughter who is DPOA, Liliya Ovalle. They understand the plan is to continue npo status and further evaluate. Diminished breath sounds with wheezing RRR s/nt/nd +bs edema present Trial of Mestinon initiated. Appreciated Dr. Dunn's recommendations. Consulted Dr. Baum for possible esophageal dissection. No evidence of perforation. Will continue pt npo and check CT of chest. Continuing Rocephin. Pt could use a central line; Dr. Baum will address that tomorrow. Hospital Course Summary Disclaimer: The visit summary below is not to be considered part of the above Progress Note.
[2017-03-21] MEDS ORDERED: WARFARIN 4 MG TABLET PO SCH (12:00)
--- NOTE | 2017-03-21 12:33 | CT Scan Report ---
EXAM: CT head/brain wo con COMPARISON: 07/23/[address] head from 03/28/2014, 10/07/2013, 11/11/2011, 03/03/2011. HISTORY: Weakness. LOCATION OF DICTATION: [facility] [place]. TECHNIQUE: Without IV contrast, axial images were obtained through the brain and reviewed in brain, soft tissue, bone, and subdural windows. The current CT scan was performed using radiation dose-reduction techniques. FINDINGS:Study somewhat limited due to motion. There may be subtle hypodensities in the basal ganglia regions which may represent prominent Virchow-Carlo spaces or old lacunar infarcts. The CSF spaces are prominent likely related to atrophy in keeping with age. Periventricular deep white matter hypodensities are noted likely related to small vessel ischemic disease. The suprasellar cistern and quadrigeminal plate cisterns are intact. The cain-white junctions are distinct. No sulcal effacement is identified. The basal ganglia, posterior fossa and brainstem region appear unremarkable. There is no evidence for midline shift or mass effect. The midline structures appear unremarkable. No osseous abnormalities are identified. The paranasal sinuses and mastoid air cells are clear. IMPRESSION: 1. Atrophy in keeping with age. 2. Periventricular deep white matter hypodensities are noted likely related to small vessel ischemic disease. 3.There may be subtle hypodensities in the basal ganglia regions which may represent prominent Virchow-Carlo spaces or old lacunar infarcts. This is similar to prior exam. .
--- NOTE | 2017-03-21 12:41 | Consultation ---
DATE OF CONSULTATION 03/21/[address] Sheffield PATIENT'S CHIEF COMPLAINT Fatigue and generalized weakness. HISTORY OF PRESENT ILLNESS Patient is an 86-year-old female with history of morbid obesity, congestive heart failure, DVT and breathing problem. The patient presented initially to the ER with excessive shortness of breath and fatigue. Her chest x-ray at that time showed evidence of moderate pulmonary edema. The patient's condition did not improve much during admission. She has been feeling weak all over with difficulty keeping her eyes open and taking care of her ADLs. She had no prior similar weakness or droopy eyelid in the past. She said that she has had some double vision and this was not documented. She denies having any spreading numbness or tingling in the extremities. She has had no changes in her lower back or neck pain. She has been treated for potential pneumonia and sepsis. This has not helped so much with her overall fatigue and breathing problems. She has had progressing dehydration and kidney function problem during admission and this has been slowly stabilizing. PHYSICAL EXAMINATION On physical examination the patient was awake, alert, and oriented x2. Pupils were round, reactive and equal, about 2 mm each. Extraocular muscles were borderline. The patient had some mild ptosis bilaterally but she was able to open her eyes if needed. Her motor examination was 4-4+ in all extremities. This was limited by the morbid obesity and fatigue. Sensory examination shows some mild deficit for pinprick and light touch in a patchy distribution all over her body. There was no particular neuropathy distribution. Deep tendon reflexes were 1/4. Coordination for [id number] was slow and affected by some mild weakness in the arms. Her speech was fluent. She has been complaining of dry mouth and difficulty swallowing her saliva. ASSESSMENT AND PLAN Diffuse fatigue and generalized weakness with no particular neurological pattern. This can be a manifestation of decompensation from having congestive heart failure, pulmonary edema and dehydration. Other considerations include myasthenia gravis type picture which is less likely in this clinical setting due to lack of prior problem with fatigue, ptosis or eye movement problems. Inflammatory neuropathy including Guillain-Enciso is less likely in this clinical setting. PLAN 1. Start patient on Mestinon. This can be given IV or orally depending on her swallowing situation. The IV dosage can be 2 mg q.8h. This can be switched to oral Mestinon 60 mg p.o. t.i.d. if patient is doing better. 2. Obtain lab work for myasthenia gravis and the paraneoplastic panel including Lambert-Eaton myasthenic syndrome. 3. Provide support for the patient's current breathing and heart problems. This may help the patient overall with her weakness and fatigue too. 3. Consider having physical and occupational therapy as patient's condition stabilizes. 4. If patient's condition progresses or she is not responding well to medication, then we can obtain a spinal tap to check for any inflammatory markers associated with neuropathy. KASANDRAD
[2017-03-21] MEDS: NS 1,000 ML IV SCH (15:42)
[2017-03-21] MEDS: PYRIDOSTIGMINE 10 MG/2 ML IV SCH ×2 (15:43→22:29)
--- NOTE | 2017-03-21 16:45 | Fluoroscopy Report ---
Indication:per speech therapy, dysphagia Procedure:FL esophagram ESOPHAGRAM: Technique: The patient swallowed thin barium with a mild amount of difficulty. Fluoroscopic imaging was obtained in the supine AP and right lateral positions. Due to the patient's limited mobility, no upright imaging was obtained. 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 Mild esophageal dysmotility is visualized. There is a small sliding esophageal hiatal hernia. The remainder of the esophagus is negative. There is no Zenker's diverticulum. No gastroesophageal reflux is visualized during this study. Impression: 1. 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 2. Mild esophageal dysmotility. 3. Small sliding esophageal hiatal hernia. Fluoroscopy Dose: 207.75 mGy (Cumulative air kerma) Epifanio Baker RPA/JUSTIN performed this under my direct supervision. .
--- NOTE | 2017-03-21 18:28 | General Surgery Consult Note ---
Consult date: 03/21/17 Attending Physician: Ck Hughes IV, MD Reason for consult: other (possible esophageal tear) [facility] Patient Stated Medical History Peripheral Neuropathy Yes: legs Cataracts Yes Congestive Heart Failure Yes Hypertension Yes Chronic Obstructive Pulmonary Yes Disease (COPD) Other Respiratory Yes: SOB Other GI Yes: Constipation Hx Incontinence Yes Other Hematologic Yes: Hx of DVT's Osteoarthritis Yes Other Musculoskeletal Yes: Muscle spasms Depression Yes Clinic Medical History Pulmonary edema (Acute Medical) Hypoxemia (Acute Medical) Acute diastolic heart failure (Acute Medical) HTN (hypertension) (Acute Medical) Acute on chronic COPD (chronic obstructive pulmonary disease) (Acute Medical) Hyperglycemia (Acute Medical) Leukocytosis (Acute Medical) Hx of deep venous thrombosis (Chronic Medical) Surgical History: Knee and hip surgery. suman. appy. bilateral cataracts 2015 Family History: son-colon cancer twin sister - diabetes mother- diabetes - Social History Smoking status: Never smoker Alcohol intake frequency: does not drink Current occupational status: unemployed Current residence: [facility] Medications Home Medications Medication Instructions Recorded Confirmed Type Furosemide [Lasix] 40 mg PO DAILY #0 10/28/10 03/14/17 History Atenolol 50 mg PO BID #0 11/19/10 03/14/17 History Gabapentin 600 mg PO QID #0 03/03/11 03/14/17 History Cyanocobalamin (Vitamin B-12) 1,000 mcg PO DAILY #0 tab 11/04/13 03/14/17 History [B-12] Dextran 70/Hypromellose 1 drp BOTH EYES TID #0 11/04/13 03/14/17 History [Artificial Tears] Folic Acid 1 mg PO DAILY #0 tab 11/04/13 03/14/17 History Primidone 50 mg PO QID #0 tab 11/04/13 03/14/17 History buPROPion HCl [Bupropion Xl] 300 mg PO DAILY #0 tab 11/04/13 03/14/17 History Lisinopril 40 mg PO DAILY #0 tab 09/10/15 03/14/17 History Sennosides/Docusate Sodium 1 tab PO DAILY #0 tab 09/10/15 03/14/17 History [Senokot-S Tablet] Bisacodyl 1 supp RECTALLY DAILY PRN #0 supp 10/20/15 03/14/17 History Magnesium Hydroxide [Milk of 30 ml PO Q12H PRN #0 10/20/15 03/14/17 History Magnesia] Methyl Salicylate/Menthol [Bengay 1 applic TOP QID PRN #0 10/20/15 03/14/17 History Greaseless Cream] Nystatin 1 applic TOP DAILY PRN #0 bottle 10/20/15 03/14/17 History Acetaminophen [Acetaminophen ER] 650 mg PO Q4H PRN 03/14/17 03/14/17 History Albuterol Sulfate [Proair Hfa] 2 puff INH Q6H PRN 03/14/17 03/14/17 History Amlodipine [Norvasc] 10 mg PO DAILY 03/14/17 03/14/17 History CarBAMazepine [TEGretol Chewable] 100 mg PO BID 03/14/17 03/14/17 History Cholecalciferol (Vitamin D3) 1,000 unit PO DAILY 03/14/17 03/14/17 History [Vitamin D3] Citalopram [Celexa] 10 mg PO DAILY 03/14/17 03/14/17 History Fluticasone/Salmeterol 250/50 1 puff INH BID 03/14/17 03/14/17 History [Advair 250-50 Diskus] Hydralazine [Apresoline] 25 mg PO BID 03/14/17 03/14/17 History Hydrocodone/APAP 7.5/325 [Bacliff 1 tab PO Q6H PRN 03/14/17 03/14/17 History 7.5/325] Hydrocodone/APAP 7.5/325 [Bacliff 1 tab PO TID 03/14/17 03/14/17 History 7.5/325] Mag Hydrox/Aluminum Hyd/Simeth 30 ml PO Q4H PRN 03/14/17 03/14/17 History [Alum-Mag Hydroxide-Simeth Liq] Peg 3350 238 G Bottle [Miralax] 17 gm PO DAILY 03/14/17 03/14/17 History Terbinafine HCl [Terbinafine] 1 applic TOP BID 03/14/17 03/14/17 History Warfarin Sodium 9 mg PO SUTUTHSA@1700 03/14/17 03/14/17 History Warfarin Sodium 10 mg PO MOWEFR@1700 03/14/17 03/14/17 History guaiFENesin [Guaifenesin] 100 mg PO Q4H PRN 03/14/17 03/14/17 History Allergies Allergy/AdvReac Type Severity Reaction Status Date / Time adhesive tape Allergy Unknown Verified 03/14/17 19:04 Penicillins Allergy Unknown Verified 03/14/17 19:04 pneumococcal vaccine Allergy Unknown Verified 03/14/17 19:04 Tetanus Vaccines and Toxoid Allergy Unknown Verified 03/14/17 19:04 tramadol Allergy Unknown Verified 03/14/17 19:04 Review of Systems 10-point ROS: negative except for HPI and the following: - General General: Present: other (weight loss of 187# in 2009) - Respiratory Respiratory: Present: difficulty breathing (on oxygen) - Gastrointestinal Gastrointestinal: Present: constipation - Genitourinary Genitourinary: Present: other (incontinence) - Musculoskeletal Musculoskeletal: Present: joint pain - Neurological Neurological: Present: muscle weakness - Psychiatric Psychiatric: Present: depression - Vital Signs Last Vital Signs Temp 96.8 F 03/21/17 15:48 Pulse 69 03/21/17 15:48 Resp 18 03/21/17 16:56 BP 172/77 H 03/21/17 15:48 Pulse Ox 99 03/21/17 16:56 - Laboratory Result Diagrams: 03/21/17 04:09 03/21/17 04:09 - Microbiogy Microbiology 03/15/17 17:48 Sputum, Expectorated Gram Stain - Final 03/15/17 17:48 Sputum, Expectorated Sputum Culture - Final Escherichia coli Klebsiella oxytoca Normal Respiratory Shawn General Surgery Results - Results Labs: 03/21/17 04:09 03/21/17 04:09 Microbiology: Microbiology 03/15/17 17:48 Sputum, Expectorated Gram Stain - Final 03/15/17 17:48 Sputum, Expectorated Sputum Culture - Final Escherichia coli Klebsiella oxytoca Normal Respiratory Shawn Hospital Course Summary Disclaimer: The visit summary below is not to be considered part of the above Progress Note. Hospital Course: 03/14/17 Inpatient admission Acute CHF, presumed diastolic--full admission for lasix IV BID, KCl supp as needed, monitor renal function with wagner. Echo and consider cardiology consult. Essential HTN on lisinopril, amlodipine, hydralazine, and atenolol. HTN on ED eval with Lasix IV with brisk diuresis and improved BP. Hypoxia present on admit due to CHF. O2 2L with SpO2 from 84% to 93%. Diurese and reassess. COPD on Advair and albuterol. Likely Pulmonary HTN, f/u echo and ? MIKAL Hyperglycemia--check A1C with her denying DM2. Check TSH as well. Leukocytosis with no fever. UA and recheck. Hx of DVTs on warfarin bu INR 3.6 Hold with AM recheck. Morbid obesity BMI 48 03/15/17 Mrs. Fitzpatrick presented with cough and symptomatic dyspnea which has progressed over the past week. There's been minimal sputum production and no other symptoms to suggest infectious etiology. BNP is elevated and chest x-ray compatible with congestive heart failure. Blood pressure was significantly elevated on admission and is improving with diuresis but suggests underlying diastolic dysfunction triggered by hypertensive urgency. EKG was without acute changes by my review and troponin unremarkable on presentation. The patient is diuresing well and cough has improved with diuresis to date. Continue same. Echocardiogram pending. Patient required 2-4 L oxygen overnight but is currently stable on 1 L. Continue to titrate oxygen as saturation permits. Although cough has been typically nonproductive the patient reports increased sputum production yesterday; sputum culture will be obtained if possible to exclude respiratory pathogen and respiratory viral panel will be screened. Albuterol when necessary. Will likely benefit from overnight oximetry prior to discharge-body habitus suggest high risk of sleep apnea or obesity hypoventilation syndrome. Hyponatremia likely due to volume overload; hypomagnesemia present on admission- magnesium will be acutely with chronic replacement continued as she is on chronic diuretic therapy. Warfarin on hold at present due to elevated INR. Supplemental history provided by the patient's son and daughter; outpatient records reviewed. Patient will return to the care of Dr. Keys at discharge. 03/16/17 Continue with Lasix 40mg IV q 8 hours to help motivate fluid - urine output exceeding intake. Creatinine stable at 0.9 and potassium 4.5 with magnesium 1.6 today. CO2 showing increase to 35 this am. Will give Diamox 500mg x2 6 hours apart today. Additional oral Magnesium 400mg today at noon as Mg low normal at 1.6 and patient on diuretic therapy. Initiate bladder retraining. Continue to wean O2 as able - currently using between 0.5-1L to maintain saturations. Will add routine DuoNeb QID due to COPD and wheezing. Acapella QID to help loosen secretions. IS to help maximize lung volume. Nasal saline QID due to nasal congestion. Add Mucinex DM BID to help decrease cough and secretions. Speech to check swallow due to coughing with oral intake. PT/OT to eval and treat - gen debility and functional decline. INR 3.23 this am - pharm managing. Continue daily INR. Will recheck BMP & Mg in am due to hyponatremia and diuretic use. Recheck CBC in an due to Coumadin use. Recheck CXR tomorrow for follow up of pulmonary edema. 03/17/17 Lasix changed to 80mg daily. Josie Monteiro. Will do overnight oximetry. Continue with DuoNeb, Acapella and mucolytics. Coumadin managing warfarin dosing , INR today 1.55 03/18/17 Will obtain a Chest X-ray for evaluation given increasing wheezing today. Concern for aspiration. Did ask speech therapy to reevaluate patient's swallow today. Asked nursing staff to get patient up out of the chair at least twice a day for meals pale. Will likely need to utilize Awa lift for transfers. Continue with Lasix 80 milligrams daily for ongoing diuresis seen Tessalmichael Wagner and Mucinex BID to help decrease cough Continue PT/OT for strengthening 03/19/17 GI symptoms that predominated over the past 2 days have subsided but fatigue and inability to provide any self-care have worsened progressively. Renal function has deteriorated (creatinine 0.7-1.7) and oral intake is virtually nonexistent. Nursing asked to assist with meals, nutritional supplements added. Lasix on hold, low-flow normal saline initiated. Lisinopril on hold due to impaired renal function. Primidone dose adjusted for renal function-may be contributing to excess fatigue. Patient worried she has a viral infection triggering fatigue, recheck respiratory viral panel although negative several days ago as was stool panel. Patient denies gradual progression of fatigue that would suggest myasthenia gravis but will screen acetylcholine receptor binding antibody. Consider empiric trial Mestinon or Tensilon test. Patient has had testing done for Dr. Dunn in the past and will ask him to evaluate on Tuesday if status does not stabilize/improve quickly. ABG now to exclude hypercarbia. Reassess chest x-ray in a.m.; sputum obtained after aspiration with mixed shawn on Gram stain and gram-negative drea reported on preliminary culture. Await final culture report. INR subtherapeutic again today, low-dose Lovenox added. Warfarin continued at 10 mg daily. 03/20/17 17:21 03/20/17 Patient continues to c/o progressive weakness. W/U, Empiric tx in progress of Osiel. Other consideration would be Guillian-Chester syndrome. She had a recent influenza vaccine and lists unknown allergy to Pneumococcal and tetanus vaccine. Given change in strength, obtain a CT of head tonight. MRI in past was normal- brain. Will get Tegretol level sent out. Consult Neuro tomorrow. May need to back off Gabapentin. PT/OT when she starts to feel better. Continue pulmonary support with Bipap, nebs, etc. Sputum cx + E.Coli- will start Cefepime today given concern for developing PNA. continue IVF for supplement of PO intake. Does reports some concern for dysphagia. Add IV PPI for now to see if this is due to reflux vs. esophageal dysmotility. Continue Warfarin- pharmacy following. Repeat labs and CXR in AM. remains ill. High risk for adverse outcome given severe obesity, frailty, advanced age.
[2017-03-21] MEDS: CEFTRIAXONE 1 G in NS 100 ML IV SCH (20:05)
--- NOTE | 2017-03-22 07:27 | Consultation ---
DATE OF CONSULTATION 03/21/2017 FINDINGS Mrs. Fitzpatrick is an 86-year-old female whom I was asked to see this evening as a result of an abnormal esophagram. I did obtain most of the information from the patient's chart as well as from the patient's daughter. The patient herself is not the best historian. The daughter informs me that the patient has been complaining of problems of swallowing for at least a year. Her daughter states that she has complained of things "getting stuck" in her cervical region as well as in her chest for quite some time. The daughter informs me the patient's functional status has been quite marginal for an extended period pf time. In reviewing the electronic medical record, it states that the patient has stated that she was able to take of herself up until a couple of weeks ago. However, the daughter "paints a different picture." The daughter states that they have been using a [facility] lift at the [facility] facility and that the patient's functional status has been "marginal" for an extended period of time. Upon entering the patient's room, her first complaint was that she was not able to "eat or drink anything." She stated that they have "taken away my food and drink." Upon questioning the patient she denied any element of chest pain or discomfort. She denied any abdominal pain. The patient, again, was not a very good historian and was unable to tell me if she has had any recent nausea or vomiting. One of the daughters informed me that the patient had a component of nausea and vomiting on Tuesday. The daughter states that they visibly have not noted any difference in the patient's overall appearance. When questioned, they have not noticed any "drooping of the eyes." PAST MEDICAL HISTORY Performed by my nurse practitionerMichael. PAST SURGICAL HISTORY Performed by my nurse practitionerMichael. MEDICATIONS Performed by my nurse practitionerMichael. ALLERGIES Performed by my nurse practitionerMichael. SOCIAL HISTORY Performed by my nurse practitionerMichael. FAMILY HISTORY Performed by my nurse practitionerMichael. REVIEW OF SYSTEMS Performed by my nurse practitionerMichael. PHYSICAL EXAMINATION Mrs. Fitzpatrick is an elderly 86-year-old female who, this evening, did not appear to be in any acute distress. VITALS: Temperature 96.8, pulse 69, respirations 18, blood pressure 172/77, SaO2 99% on 1 liter per nasal cannula. HEENT: Normocephalic. Pupils are equal, round and reactive to light and accommodation. CHEST: Auscultation of the chest revealed clear and equal breath sounds. Palpation of the chest wall did not reveal any evidence for subcutaneous crepitation. Additionally, palpation within the supraclavicular region and neck also failed to reveal any evidence for subcutaneous crepitation. . HEART: Regular rate and rhythm. Normal S1 and S2 without gallops, murmurs or clicks. ABDOMEN: Palpation of the abdomen reveals it to be soft and nontender. I do not appreciate any evidence for hepatosplenomegaly or abnormal masses. EXTREMITIES: Without clubbing, cyanosis, or edema. NEURO: Cranial nerves II-XII grossly intact. Patient is without focal motor or sensory deficits. LABORATORY/RADIOGRAPH/REVIEW OF PATIENT'S CHART I did spend a fair amount of time reviewing the patient's chart. CBC was obtained today and her white count was 9.1. Hemoglobin is stable at 12.4. BUN was elevated today at 51.0. Creatinine is stable 1.1. There is some question whether or not the patient may have myasthenia gravis. Acetylcholine receptor binding antibody has been ordered and is pending. A barium swallow was obtained today that revealed a persistent linear filling defect that extends nearly the entire length of the esophagus. 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 There was a component of some mild esophageal dysmotility noted. ASSESSMENT 86-year-old female with significant associated medical comorbidities who presented initially with increasing shortness of breath. The patient has a longstanding history for dysphagia. Esophagram obtained today revealed a questionable abnormality. The patient is without physical findings or clinical history suggestive of esophageal perforation. Perhaps the patient may have a Hanna-Camacho tear following a component of nausea and vomiting on Tuesday. Patient perhaps with an intramucosal esophageal leiomyoma. The patient appears to be without acute surgical process at this time. PLAN I did spend a fair amount time reviewing the patient's chart. I do see that she is on broad-spectrum antibiotics. Would recommend that we continue with ongoing broad-spectrum antibiotics and continue with an n.p.o. status. Will go ahead and obtain a CT scan of her chest to rule out mediastinal air or evidence for an esophageal perforation as well as for further evaluation of her esophagus. Will have our radiologist review her esophagram from today as well as the CT scan obtained from this evening tomorrow. Even if the patient would have a cindy esophageal perforation as a result of a "Boerhaave's syndrome," the patient, in my opinion, is not an operative candidate. Will await her radiographic results and will proceed accordingly thereafter. Ultimately, the patient may require direct visualization/esophagogastroduodenoscopy for further evaluation. NORBERT
[2017-03-22] MEDS: ALBUTEROL/IPRATROPIUM 2.5mg-0.5mg/3ml NEB AEROSOL SCH ×3 (07:45→15:31)
--- NOTE | 2017-03-22 08:11 | CT Scan Report ---
Indication: possible esophageal tear PROCEDURE: CT chest wo con: Encounter: Initial Comparison: Esophagram from the same date Technique: Axial CT images were performed through the chest without intravenous contrast. Coronal and sagittal two-dimensional reformats. Automated Exposure Control and Iterative Reconstruction dose reducing techniques were utilized. Findings: There is mild atelectasis in both lung bases. Consolidation in the medial left lower lobe. Calcified granulomas. No axillary adenopathy. No significant free fluid to suggest an esophageal perforation or rupture. No evidence of pneumomediastinum or pneumothorax. Heart size is mildly enlarged. No pericardial effusion. Coronary artery calcifications. The upper abdomen shows sludge or stone debris in the gallbladder. Surgical changes at the GE junction with numerous clips causing metallic artifact. Bone windows show no acute findings. Impression: No evidence of complete esophageal tear or perforation. Please referred to the esophagram for further details. Left basilar airspace could represent atelectasis, scarring, pneumonia or aspiration. There is a preliminary report by [facility]. .
[2017-03-22] MEDS: SALINE 0.65% NASAL SPRAY 44 ML BOTTLE EA NOSTRIL SCH ×4 (08:37→21:12)
[2017-03-22] MEDS: HYDRALAZINE 25 MG TABLET PO SCH (08:41)
[2017-03-22] MEDS: AMLODIPINE 10 MG TABLET PO SCH (08:41)
[2017-03-22] MEDS: BuPROPion XL 300mg (24HR) TABLET PO SCH (08:41)
[2017-03-22] MEDS: GABAPENTIN 600 MG TABLET PO SCH ×4 (08:42→21:11)
[2017-03-22] MEDS: CITALOPRAM 10 MG TABLET PO SCH (08:42)
[2017-03-22] MEDS: PRIMIDONE 50 MG TABLET PO SCH (08:43)
[2017-03-22] MEDS: GUAIFENESIN/D-METHORPHAN 600mg/30mg TABLET PO SCH ×2 (08:43→21:11)
[2017-03-22] MEDS: ENOXAPARIN 40 MG/0.4 ML INJECTION SQ SCH (08:44)
[2017-03-22] MEDS: PANTOPRAZOLE 40 MG INJECTION IVP SCH (08:48)
[2017-03-22] MEDS: PYRIDOSTIGMINE 10 MG/2 ML IV SCH ×2 (08:49→14:49)
--- NOTE | 2017-03-22 09:13 | Pharmacy Consult ---
Pharmacy Consult-Warfarin - Laboratory Information 03/15/17 03/16/17 03/17/17 04:27 04:02 04:41 INR 4.01 H 3.23 H 1.55 H 03/18/17 03/19/17 03/20/17 07:20 06:20 08:00 INR 1.20 1.26 H 1.70 H 03/21/17 03/22/17 08:25 04:16 INR 1.90 H 1.97 H - Consult Information JOYCE is a 86 yo female admitted for Acute CHF. She has a history of DVT. Patient is on anticoagulation therapy at home with Warfarin 9 mg orally on SuTuTh and Warfarin on , Date INR Dose given 03/15 4.01 No Dose given 03/16 3,23 No Dose given 03/17 1.55 7.5 mg 03/18 1.20 10 mg 03/19 1.26 10 mg 03/20 1.75 7.5 mg 03/21 1.90 8 mg 03/22 1.97 Plan 9 mg The INR was subtherapeutic but it is getting close so I am giving the home dose of warfarin (today's dose of 9 mg orally). The pharmacy will continue to follow the INR's and adjust as needed. Thanks for the Warfarin Protocol, Oscar Ratliff, Pharmacist.
[2017-03-22] MEDS ORDERED: MORPHINE SULFATE 2mg INJECTION IM ONE (12:36)
[2017-03-22] MEDS: NS 1,000 ML IV SCH (12:46)
[2017-03-22] MEDS ORDERED: WARFARIN PO ONE (13:45)
[2017-03-22] MEDS ORDERED: MORPHINE SULFATE 10mg/0.5ml ORAL LIQ PO PRN (16:42)
[2017-03-22] MEDS ORDERED: ALBUTEROL/IPRATROPIUM 2.5mg-0.5mg/3ml NEB AEROSOL PRN (16:51)
--- NOTE | 2017-03-22 16:51 | Progress Note ---
- Date 03/22/17 Subjective: Mrs. Fitzpatrick and her family have decided to focus on keeping her comfortable. Her daughter says the patient is not ready to hear "hospice" but wants to be comfortable. Stopping most meds and letting Mrs. Fitzpatrick eat and drink whatever she wants was d/w patient and family. Objective Vital signs: Temperature 98.4 F 03/22/17 08:00 Pulse Rate 80 03/22/17 08:00 Respiratory Rate 22 03/22/17 15:20 Blood Pressure 139/67 03/22/17 08:00 Pulse Oximetry 95 03/22/17 15:20 Height/Weight/BMI: Height 5 ft 3 in Weight 122.5 kg Body Mass Index 48.3 - Constitutional Present: mild distress - Routine HEENT Exam Eye: Present: EOMI ENT: Present: mucous membranes moist, dentition normal - Routine Respiratory Exam Present: wheezes, diminished air movement - Routine Cardiovascular Exam Present: RRR. Absent: murmur - Routine Abdominal Exam Present: soft, normoactive bowel sounds, non distended. Absent: tenderness - Routine Extremities Exam Present: edema Results - Labs CBC & Chem 7: 03/22/17 04:16 03/22/17 04:16 Microbiology Results: Microbiology 03/15/17 17:48 Sputum, Expectorated Gram Stain - Final 03/15/17 17:48 Sputum, Expectorated Sputum Culture - Final Escherichia coli Klebsiella oxytoca Normal Respiratory Sydney Assessment and Plan (1) Hypoxemia Current visit: Yes Status: Acute (2) Acute diastolic heart failure Current visit: Yes Status: Acute (3) HTN (hypertension) Problem details: Acute on chronic Current visit: Yes Status: Acute (4) COPD (chronic obstructive pulmonary disease) Current visit: Yes Status: Acute Assessment and Plan: Acute CHF, diastolic, EF 50-55% Hypertensive urgency-POA, resolved Obesity hypoventilation syndrome Chronic hypertension Fatigue Acute kidney injury-not POA Hypoxia COPD Hyperglycemia/metabolic syndrome-A1c 6.3 History DVT Chronic warfarin therapy Morbid obesity-BMI 48.2 Peripheral neuropathy DDD/DJD Hypomagnesemia, POA Hyponatremia, POA-131 Dysphasia Progressive ascending weakness esophageal dissection Will start comfort care measures with roxanol and ativan. Will DC most of meds to decrease pill burden for her swallow. Will put her on a regular diet. Expect she will go back to [facility] and have hospice follow. Hospital Course Summary Disclaimer: The visit summary below is not to be considered part of the above Progress Note. Hospital Course: 03/21/17 19:01 Trial of Mestinon initiated. Appreciated Dr. Dunn's recommendations. Consulted Dr. Baum for possible esophageal dissection. No evidence of perforation. Will continue pt npo and check CT of chest. Continuing Rocephin. Pt could use a central line; Dr. Baum will address that tomorrow. 03/22/17 16:58 Will start comfort care measures with roxanol and ativan. Will DC most of meds to decrease pill burden for her swallow. Will put her on a regular diet. Expect she will go back to [facility] and have hospice follow.
[2017-03-22] MEDS ORDERED: LORazepam INTENSOL 1mg/0.5ml ORAL LIQUID PO PRN (16:57)
--- NOTE | 2017-03-22 18:30 | Progress Note ---
DATE 03/22/2017 FINDINGS Mrs. Fitzpatrick is an 86-year-old female whom I saw earlier today on rounds. The patient's daughter was present during the time I evaluated the patient. The patient stated that she was having a "bad day." She states that she was having pain "throughout her entire body." She denied, however, specific pain within her chest region. PHYSICAL EXAM VITAL SIGNS: Afebrile, normotensive. Last recorded vitals include temperature 97.4, pulse 79, respirations 20, blood pressure 139/69, SAO2 96% on 1 L/nasal cannula. HEENT: Normocephalic. Pupils are equal and round and react to light and accommodation. NECK: Supple without subcutaneous crepitans. CHEST: Clear auscultation bilaterally. Palpation of the chest did not reveal any evidence for crepitans. ABDOMEN: Soft. Minimal tenderness noted. 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 CT scan without evidence for immediate pneumomediastinum/perforation. PLAN I did discuss the case earlier today with our radiologist, Dr. Epifanio Bell. I had a discussion with the patient's family as well earlier today on rounds. I informed the patient's family that I did not feel that she had esophageal perforation or a "surgical process." It was my recommendation that we not proceed with direct visualization/EGD at this time and slowly advance her diet. Would recommend placing her on clear liquids and following her from a clinical standpoint. Discussion was undertaken about possible hospice/comfort care. The patient's daughter had informed me that they were going to have a "family meeting" and discuss the option of palliative care. For now will advance diet slowly and await family decisions. I was informed this evening that the family has decided to proceed more with a palliative approach which I believe is appropriate in this elderly patient with significant medical comorbidities. [facility]
--- NOTE | 2017-03-22 18:48 | Progress Note ---
DATE 03/22/[address] Sheffield CHIEF COMPLAINT Weakness and dysphagia. HISTORY OF PRESENT ILLNESS Patient has done a little bit better since yesterday. She has had more energy and she is able to open her eyes better. She is still struggling with her swallowing and she will be having more evaluation for her dysphagia today. She has had no problem getting the IV Mestinon. The patient denies any chest pain or shortness of breath at the present time. Her motor examination has not changed significantly since yesterday. ASSESSMENT Generalized weakness, dysphagia and mild ptosis concerning for decompensation associated with generalized medical conditions including congestive heart failure, pulmonary edema and sepsis. The patient has shown some mild improvement on the Mestinon and fluids. Her lab work for myasthenia is still pending. The patient will be having more evaluation for dysphagia and esophageal problems later today. PLAN Continue current medication and improve fluid intake. KASANDRAD
[2017-03-23 07:49] VITALS: RESP 18
[2017-03-23] MEDS: GUAIFENESIN/D-METHORPHAN 600mg/30mg TABLET PO SCH (09:02)
[2017-03-23] MEDS: GABAPENTIN 600 MG TABLET PO SCH ×2 (09:03→13:47)
[2017-03-23] MEDS: SALINE 0.65% NASAL SPRAY 44 ML BOTTLE EA NOSTRIL SCH ×2 (09:03→13:48)
[2017-03-23 15:11] VITALS: BP 163/68; PULSE 82; TEMP 98.5; O2SAT 97
--- NOTE | 2017-03-23 15:18 | Discharge Summary ---
<Anne Espinoza - Last Filed: 03/23/17 18:54> Discharge Information Date of admission: 03/14/17 22:08 Anticipated date of discharge: 03/23/17 Attending Physician: Ck Hughes IV, MD Primary care physician: Jamey Keys MD Consults: 03/20/17 19:41 Physician Consult [CONS] Routine Consulting Provider: Charo Dunn Reason For Exam: weakness Ordering Provider has Notified Pourer Off: Yes Comment: notified at 0715 03/21/17 19:05 Physician Consult [CONS] Routine Consulting Provider: Chris Baum Reason For Exam: esophageal dissection Ordering Provider has Notified Pourer Off: Yes - Discharge Diagnosis (1) Hypoxemia Status: Chronic (2) Acute diastolic heart failure Status: Chronic (3) HTN (hypertension) Status: Chronic (4) COPD (chronic obstructive pulmonary disease) Status: Chronic Esophageal dissection Acute CHF, diastolic, EF 50-55% Hypertensive urgency-POA, resolved Obesity hypoventilation syndrome Chronic hypertension Fatigue Acute kidney injury-not POA Hypoxia COPD Hyperglycemia/metabolic syndrome-A1c 6.3 History DVT Chronic warfarin therapy Morbid obesity-BMI 48.2 Peripheral neuropathy DDD/DJD Hypomagnesemia, POA Hyponatremia, POA-131 Dysphagia Progressive ascending weakness - Procedures Procedures: Date of Exam: 03/15/17 Type of Exam(s): US echo doppler complete DATE OF PROCEDURE March 15, 2017 REFERRING PHYSICIAN Dipesh Orlando MD This is a two-dimensional echo with spectral Doppler, color-flow and M-mode. It was obtained in a patient with congestive heart failure. This is a technically difficult study. Left atrium is normal. Left ventricle end-diastolic dimension is normal. Left ventricle wall thickness is normal. LV systolic function is grossly normal with ejection fraction of about 50-55%. Right atrium is normal. Right ventricle is normal. Aortic root dimension is normal. Mitral valve annulus is calcified. Mitral valve leaflets are normal with trace of mitral regurgitation. Aortic valve shows fibrocalcific changes with no stenosis or insufficiency. Tricuspid valve shows trace of tricuspid regurgitation with mild pulmonary hypertension with estimated pulmonary artery systolic pressure of 43. Pulmonary valve shows no pulmonary insufficiency. There is no pericardial effusion. IMPRESSION 1. Normal LV systolic function with ejection fraction of about 50-55%. 2. Mitral annulus calcification with trace of mitral regurgitation. 3. Aortic sclerosis. 4. Trace of tricuspid regurgitation with mild pulmonary hypertension with estimated pulmonary artery systolic pressure of 43. 5. Technically difficult study. - Laboratory Labs: 03/22/17 04:16 03/22/17 04:16 - Microbiology Microbiology 03/15/17 17:48 Sputum, Expectorated Gram Stain - Final 03/15/17 17:48 Sputum, Expectorated Sputum Culture - Final Escherichia coli Klebsiella oxytoca Normal Respiratory [place] - Radiology Radiology: Date of Exam: 03/21/17 Ordering Provider: Nichol Sigala APRN Type of Exam(s): CT chest wo con Reason for Exam(s): possible esophageal tear ADDENDUM Addendum: There is a linear region of contrast within the esophagus measuring 5 cm in length and 1to 3 mm in thickness. This could represent contrast within a small partial-thickness esophageal tear based on the results of the prior esophagram. Alternatively this could represent esophageal stasis and gastroesophageal reflux. No periesophageal inflammatory change or other findings to suggest impending rupture. . Addendum Dictated By: Epifanio Bell MD 03/22/17923 Addendum Signed By: Epifanio Bell MD 03/22/17927 Addendum Transcribed By: Osorio Raising IT 03/22/17923 Indication: possible esophageal tear PROCEDURE: CT chest wo con: Encounter: Initial Comparison: Esophagram from the same date Technique: Axial CT images were performed through the chest without intravenous contrast. Coronal and sagittal two-dimensional reformats. Automated Exposure Control and Iterative Reconstruction dose reducing techniques were utilized. Findings: There is mild atelectasis in both lung bases. Consolidation in the medial left lower lobe. Calcified granulomas. No axillary adenopathy. No significant free fluid to suggest an esophageal perforation or rupture. No evidence of pneumomediastinum or pneumothorax. Heart size is mildly enlarged. No pericardial effusion. Coronary artery calcifications. The upper abdomen shows sludge or stone debris in the gallbladder. Surgical changes at the GE junction with numerous clips causing metallic artifact. Bone windows show no acute findings. Impression: No evidence of complete esophageal tear or perforation. Please referred to the esophagram for further details. Left basilar airspace could represent atelectasis, scarring, pneumonia or aspiration. Date of Exam: 03/21/17 Ordering Provider: Anne Espinoza Type of Exam(s): FL esophagram Reason for Exam(s): per speech therapy, dysphagia Indication:per speech therapy, dysphagia Procedure:FL esophagram ESOPHAGRAM: Technique: The patient swallowed thin barium with a mild amount of difficulty. Fluoroscopic imaging was obtained in the supine AP and right lateral positions. Due to the patient's limited mobility, no upright imaging was obtained. 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 Mild esophageal dysmotility is visualized. There is a small sliding esophageal hiatal hernia. The remainder of the esophagus is negative. There is no Zenker's diverticulum. No gastroesophageal reflux is visualized during this study. Impression: 1. 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 2. Mild esophageal dysmotility. 3. Small sliding esophageal hiatal hernia. Fluoroscopy Dose: 207.75 mGy (Cumulative air kerma) Date of Exam: 03/17/17 Ordering Provider: Dipesh Orlando MD Type of Exam(s): XR chest 2V Reason for Exam(s): F/U Pulmonary edema INDICATION: F/U Pulmonary edema PROCEDURE: CHEST 2-VIEWS UPRIGHT (PA & LAT) Encounter: Initial COMPARISON: March 14, 2017 FINDINGS: Lungs appear stable. No new consolidation. No pleural effusion or pneumothorax. Heart size and mediastinal contours are unchanged. Pulmonary vascularity remains mildly prominent. Lateral view is limited. Impression: Stable appearance of the chest. Date of Exam: 03/18/17 Ordering Provider: Altagracia Marino APRN Type of Exam(s): XR chest 1V Reason for Exam(s): increased wheezing, concern for aspiration Indication: increased wheezing, concern for aspiration PROCEDURE: XR chest 1V: Encounter: Initial Comparison: March 17, 2017 Findings: Motion artifact. There is new obscuration of the left hemidiaphragm. Right lung appears grossly clear. No pneumothorax. Cardiac silhouette remains enlarged. Mediastinal contours are stable allowing for differences in rotation. Pulmonary vascularity is not well evaluated due to the motion. Impression: New obscuration of the left diaphragm could be due to atelectasis, pneumonia or aspiration. Date of Exam: 03/21/17 Ordering Provider: Azeb Stewart APRN Type of Exam(s): XR chest 1V Reason for Exam(s): soa Indication: soa PROCEDURE: XR chest 1V: Encounter: Initial Comparison: March 18, 2017 Findings: Mildly increased interstitial markings. Improved aeration of the left lower lobe. No pneumothorax or significant pleural fluid. Cardiac silhouette remains enlarged. Mediastinal contours are stable. Pulmonary vascularity is mildly prominent. Impression: Mild pulmonary edema. Improving aeration of the left base Date of Exam: 03/21/17 Ordering Provider: Azeb Stewart APRN Type of Exam(s): CT head/brain wo con Reason for Exam(s): Weakness. EXAM: CT head/brain wo con COMPARISON: 07/23/[address] head from 03/28/2014, 10/07/2013, 11/11/2011, 03/03/2011. HISTORY: Weakness. LOCATION OF DICTATION: [facility] [place]. TECHNIQUE: Without IV contrast, axial images were obtained through the brain and reviewed in brain, soft tissue, bone, and subdural windows. The current CT scan was performed using radiation dose-reduction techniques. FINDINGS:Study somewhat limited due to motion. There may be subtle hypodensities in the basal ganglia regions which may represent prominent Virchow-Carlo spaces or old lacunar infarcts. The CSF spaces are prominent likely related to atrophy in keeping with age. Periventricular deep white matter hypodensities are noted likely related to small vessel ischemic disease. The suprasellar cistern and quadrigeminal plate cisterns are intact. The cain-white junctions are distinct. No sulcal effacement is identified. The basal ganglia, posterior fossa and brainstem region appear unremarkable. There is no evidence for midline shift or mass effect. The midline structures appear unremarkable. No osseous abnormalities are identified. The paranasal sinuses and mastoid air cells are clear. IMPRESSION: 1. Atrophy in keeping with age. 2. Periventricular deep white matter hypodensities are noted likely related to small vessel ischemic disease. 3.There may be subtle hypodensities in the basal ganglia regions which may represent prominent Virchow-Carlo spaces or old lacunar infarcts. This is similar to prior exam. History of Present Illness HPI: Please note that the patient was admitted with nursing assistance by telemedicine on 03/14-03/15/2017 Ms. 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 She recognizes nonproductive cough but no CP or palpitations (note she denies CAD hx). No other fevers, chills, nausea, vomiting. Weight up 10 pounds by [place] records and patient denies any fluid restriction, and she does drink as she pleases. Objective Vital signs: Temperature 98.5 F 03/23/17 15:07 Pulse Rate 82 03/23/17 15:07 Respiratory Rate 18 03/23/17 15:07 Blood Pressure 163/68 H 03/23/17 15:07 Pulse Oximetry 97 03/23/17 15:07 Height/Weight/BMI: Height 1.6 m Weight 122.5 kg Body Mass Index 48.3 - Constitutional Present: no acute distress, well nourished, well developed - Routine Respiratory Exam Present: wheezes, diminished air movement - Routine Cardiovascular Exam Present: RRR. Absent: murmur - Routine Abdominal Exam Present: soft, normoactive bowel sounds, non distended. Absent: tenderness - Routine Extremities Exam Present: edema, normal capillary refill - Routine Skin Exam Present: dry, warm - Routine Neurological Exam Present: alert - Routine Lymphatic Exam Lymphatic: Absent: adenopathy - Routine Psychiatric Exam Present: normal affect Hospital Course This is a general summary of the patient's hospital course. For more details refer to the complete medical record. Hospital course: Patient was admitted on 03/15/17 with acute CHF and hypoxia. She was started on Lasix for diuresis. On hospital day 2, she was continued on Lasix every 8 hours. Her CO2 increased to 35 so she was given Diamox 2. Additional oral magnesium was given due to low magnesium level. She was complaining of trouble swallowing, so speech therapy was consulted. On day 3 her Lasix is changed to daily dosing. On day 4 she had increased wheezing and there was concern for possible aspiration. Chest x-ray was consistent with atelectasis versus aspiration. Speech therapy had recommended thickened liquids and mechanical soft diet with ground meats. On day 5 she had significant fatigue weakness and was unable to keep her eyes open. She was no longer taking in any significant amounts of food or water and her creatinine increased. Lasix was placed on hold due to the impaired renal function. On day 6, given her progressive weakness, CT head was performed and was essentially negative. Her sputum culture grew out Escherichia coli so cefepime was started. She continued to have dysphagia. IV PPI was initiated. On day 7, patient was seen by Dr. Dunn to rule out myasthenia gravis. He started her on Mestinon and agreed with lab testing for myasthenia gravis. Given increasing difficulty with swallowing thickened liquids , she underwent an esophagram which showed a possible dissection of the esophagus. Thus, Dr. Baum was consulted and he recommended CT chest. This showed a linear region of contrast within the esophagus measuring 5 cm in length and 1-3 mm in thickness which "could represent contrast within a small partial-thickness esophageal tear"or alternatively could represent esophageal stasis and GERD. Given that there was no option of surgical intervention, or other options to help with her dysphagia, family patient opted to go with comfort care, but were not ready to set up hospice. Most of her medications were discontinued except for her gabapentin which was continued for her neuropathic pain. Ativan and Roxanol were added to her regimen, but she was not needing the Roxanol. On day 8 she was stable enough to be transferred back to [place]. In discussion with the family, they wanted to go ahead with comfort care, but were afraid to use the word "hospice" around the patient. Thus , she was transferred back to her regular nursing care but only with medications to provide "discomfort." Dr. Hughes discussed her case with Dr. Keys. He will resume her care at this time. Time spent with patient: discharge greater than 30 minutes Discharge Plan - Discharge Disposition Disposition: 04 To [facility] Home/Facility *Condition: Stable Reason For Visit (Visit label in EMR): Acute CHF - Discharge Medications *Discharge Medications: New Morphine Sulfate Oral Liq [Roxanol Oral Liq] 5 mg PO Q2H PRN #15 syringe PRN Reason: pain, air hunger Sodium Chloride [Deep Sea] 2 spray EA NOSTRIL QID spray Albuterol/Ipratropium [Duoneb] 3 ml AEROSOL RTQID PRN neb PRN Reason: Wheezing LORazepam INTENSOL [Ativan Intensol] 1 mg PO Q2H PRN #30 ml PRN Reason: anxiety, air hunger Continue Gabapentin 600 mg PO QID #0 Dextran 70/Hypromellose [Artificial Tears] 1 drp BOTH EYES TID #0 Magnesium Hydroxide [Milk of Magnesia] 30 ml PO Q12H PRN #0 PRN Reason: Constipation Bisacodyl 1 supp RECTALLY DAILY PRN #0 supp PRN Reason: PRN ORDERS Nystatin 1 applic TOP DAILY PRN #0 bottle PRN Reason: ITCHING Methyl Salicylate/Menthol [Bengay Greaseless Cream] 1 applic TOP QID PRN #0 PRN Reason: PAIN Albuterol Sulfate [Proair Hfa] 2 puff INH Q6H PRN PRN Reason: Shortness Of Air/Wheezing Acetaminophen [Acetaminophen ER] 650 mg PO Q4H PRN PRN Reason: Pain Hydrocodone/APAP 7.5/325 [Corwith 7.5/325] 1 tab PO Q6H PRN PRN Reason: Pain Sennosides/Docusate Sodium [Senokot-S Tablet] 1 tab PO DAILY #0 tab Mag Hydrox/Aluminum Hyd/Simeth [Alum-Mag Hydroxide-Simeth Liq] 30 ml PO Q4H PRN PRN Reason: Indigestion Fluticasone/Salmeterol 250/50 [Advair 250-50 Diskus] 1 puff INH BID Discontinued Primidone 50 mg PO QID #0 tab Folic Acid 1 mg PO DAILY #0 tab Hydrocodone/APAP 7.5/325 [Corwith 7.5/325] 1 tab PO TID Terbinafine HCl [Terbinafine] 1 applic TOP BID Peg 3350 238 G Bottle [Miralax] 17 gm PO DAILY Amlodipine [Norvasc] 10 mg PO DAILY CarBAMazepine [TEGretol Chewable] 100 mg PO BID Citalopram [Celexa] 10 mg PO DAILY Warfarin Sodium 9 mg PO SUTUTHSA@1700 Warfarin Sodium 10 mg PO MOWEFR@1700 Furosemide [Lasix] 40 mg PO DAILY #0 Atenolol 50 mg PO BID #0 buPROPion HCl [Bupropion Xl] 300 mg PO DAILY #0 tab Cyanocobalamin (Vitamin B-12) [B-12] 1,000 mcg PO DAILY #0 tab Lisinopril 40 mg PO DAILY #0 tab guaiFENesin [Guaifenesin] 100 mg PO Q4H PRN PRN Reason: Cough Cholecalciferol (Vitamin D3) [Vitamin D3] 1,000 unit PO DAILY Hydralazine [Apresoline] 25 mg PO BID - Discharge Packet/Instructions *Diet: regular *Activity: as tolerated *Pain Management/Treatment: as per meds ordered *Wound Care: n/a *Expected Signs/Symptoms: n/a *Notify Physician if: new or worsening sxs *During Business Hours Contact: nurse at [place] *After Business Hours Contact: nurse [place] - Referrals/Follow Up *Referrals/Follow Up: Jamey Keys MD [Family Provider] - 1 Week - Patient Handouts Patient Handouts: [facility] [place] Congestive Heart Failure - Dismissal Complete Discharge Instructions are:: Complete <Ck Hughes IV - Last Filed: 03/23/17 20:28> Discharge Information Date of admission: 03/14/17 22:08 Attending Physician: Ck Hughes IV, MD Primary care physician: Jamey Keys MD Consults: 03/17/17 09:51 Physician Consult [CONS] Routine Consulting Provider: Yovany Mcneill Reason For Exam: SNU Ordering Provider has Notified Pourer Off: Yes 03/18/17 09:27 Doctor [Physician Consult] [CONS] Routine Consulting Provider: Yovany Mcneill Reason For Exam: continued care Ordering Provider has Notified Pourer Off: Yes 03/20/17 19:41 Physician Consult [CONS] Routine Consulting Provider: Charo Dunn Reason For Exam: weakness Ordering Provider has Notified Pourer Off: Yes Comment: notified at 0715 03/21/17 19:05 Physician Consult [CONS] Routine Consulting Provider: Chris Baum Reason For Exam: esophageal dissection Ordering Provider has Notified Pourer Off: Yes - Discharge Diagnosis (1) Hypoxemia Status: Chronic (2) Acute diastolic heart failure Status: Chronic (3) HTN (hypertension) Status: Chronic (4) COPD (chronic obstructive pulmonary disease) Status: Chronic - Laboratory Labs: 03/22/17 04:16 03/22/17 04:16 - Microbiology Microbiology 03/15/17 17:48 Sputum, Expectorated Gram Stain - Final 03/15/17 17:48 Sputum, Expectorated Sputum Culture - Final Escherichia coli Klebsiella oxytoca Normal Respiratory [place] Objective Vital signs: Temperature 98.5 F 03/23/17 15:07 Pulse Rate 82 03/23/17 15:07 Respiratory Rate 18 03/23/17 15:07 Blood Pressure 163/68 H 03/23/17 15:07 Pulse Oximetry 97 03/23/17 15:07 Height/Weight/BMI: Height 5 ft 3 in Weight 122.5 kg Body Mass Index 48.3 Hospital Course This is a general summary of the patient's hospital course. For more details refer to the complete medical record. Attestation Narriative - Attestation Attestation Narrative: 03/23/17 20:19 I have independently evaluated and examined this patient. I reviewed the chart, the patient's history, and the SURVEYING TECHNICIAN/PA's documented findings as above. We discussed and formulated the assessment and plan as above with additions as below: Patient has been doing better. One of her daughters asked if they were doing the right thing. We discussed whether her mother might be doing better because we are focusing on keeping her comfortable. We also discussed that her mother had choked on water earlier in the day and that that could happen any time. With her , she agreed comfort care is the right choice. Patient returned to [place]. Hospice has not been brought in b/c patient does not respond well if hospice mentioned. However patient has agreed with me that the focus should only be on keeping her comfortable. Diminished breath sounds with wheezing RRR s/nt/nd +bs edema present Continue comfort care. Have recommended hospice be involved. d/w Dr. Keys.
--- NOTE | 2017-03-23 15:48 | Extended Care Facility Orders ---
Admission Orders Admit to:: [facility] Allergies/Adverse Reactions: Allergies adhesive tape Allergy (Unknown, Verified 03/14/17 19:04) Penicillins Allergy (Unknown, Verified 03/14/17 19:04) pneumococcal vaccine Allergy (Unknown, Verified 03/14/17 19:04) Tetanus Vaccines and Toxoid Allergy (Unknown, Verified 03/14/17 19:04) tramadol Allergy (Unknown, Verified 03/14/17 19:04) Admitting Diagnosis: Acute CHF Admitting Physician: Ck Hughes IV, MD Attending Physician: Ck Hughes IV, MD Code Status: Do Not Resuscitate Anticiapted Length of Stay: greater than 30 days Rehab Potential: poor Rehab Prognosis: poor Diet: 03/23/17 Lunch Regular Diet [DIET] Diet Modifications: May use Facility Protocol or Standing Orders: Yes May have flu vaccine: Yes - Additional Information In Event of Arrest: Do Not Start CPR Resident is Aware of Diagnosis: Yes Referrals: Jamey Keys MD [Family Provider] - 1 Week
== END 2017-03-23 17:40 | disposition hospice, home (50) | DRG 292 ==
LOC: ED 19:00 → MED 22:08 → SUATTDRO 22:08 → MED 23:25
PROVIDERS: ADMIT Hospitalist; ATTEND Hospitalist